=== PATIENT | female | born 1935 | race Caucasian/White ===

== ENCOUNTER 2017-10-13 11:41 | Inpatient (IN) | payer OTHER ==
[2017-10-13 13:21] LABS: BILIRUBIN,URINE NEGATIVE (NEGATIVE); BLOOD/HEMOGLOBIN,URINE NEGATIVE (NEGATIVE); GLUCOSE, URINE NEGATIVE (NEGATIVE); KETONES,URINE NEGATIVE (NEGATIVE); LEUKOCYTE ESTERASE ,URINE NEGATIVE (NEGATIVE); NITRITES,URINE NEGATIVE (NEGATIVE); PROTEIN,URINE NEGATIVE (NEGATIVE); UROBILINOGEN,URINE NORMAL (NORMAL)
[2017-10-13 13:28] LABS: APPEARANCE,URINE CLEAR (CLEAR); BACTERIA,URINE NEGATIVE /HPF (NEGATIVE); COLOR,URINE PALE YELLOW (YELLOW); RBC,URINE 0-1 /HPF (NONE SEEN); SQUAMOUS EPITHELIAL CELL,UR NEGATIVE /HPF (NEGATIVE)
[2017-10-13 13:29] LABS: BASOPHILS # (AUTO) 0.1 X10^3/uL (0.0-0.1); BASOPHILS % (AUTO) 0.5 % (0.2-1.0); EOSINOPHILS % (AUTO) 0.4 % (0.9-2.9); HEMATOCRIT 39.3 % (36.0-47.0); HEMOGLOBIN 13.7 g/dL (12.0-16.0); LYMPHOCYTES % (AUTO) 18.3 % (21.0-51.0); MEAN CORPUSCULAR HEMOGLOBIN 31.8 pg (27.0-34.0); MEAN CORPUSCULAR VOLUME 90.7 fL (80.0-100.0); MEAN PLATELET VOLUME 9.1 fL (7.4-11.0); MONOCYTES # (AUTO) 1.2 x10^3/uL (0.3-0.8); NEUTROPHILS # (AUTO) 7.5 x10^3/uL (2.2-4.8); NEUTROPHILS % (AUTO) 69.8 % (42.0-75.0); PLATELET COUNT 210 X10^3/uL (150.0-450.0); RED BLOOD COUNT 4.33 X10^6/uL (3.5-5.4); WHITE BLOOD COUNT 10.8 X10^3/uL (3.6-10.0)
[2017-10-13] MEDS: NS 1000 ML 1,000 ML IV SCH ×2 (13:42→20:27)
[2017-10-13] MEDS: FORTAZ or TAZICEF INJ 1 GM in NS 100 ML IV + SPIKE MINIBAG* 100 ML IV SCH ×3 (13:42→21:48)
[2017-10-13 14:01] LABS: B-TYPE NATRIURETIC PEPTIDE 375 pg/mL (0-79)
--- NOTE | 2017-10-13 14:12 | RAD ---
History: Shortness of breath Study: Portable AP chest Comparison: September 26, 2016 Findings: There is unchanged mild cardiomegaly status post coronary artery bypass grafting surgery. T he lungs are clear. The lungs are hyperinflated. There is no edema or effusion. Impression: Mild cardiomegaly and hyperinflation suggesting COPD Reported By:
[2017-10-13 14:17] LABS: ALANINE AMINOTRANSFERASE 20 Units/L (12-78); ALBUMIN 3.6 g/dL (3.4-5.0); ALKALINE PHOSPHATASE 86 Units/L (46-116); ASPARTATE AMINO TRANSFERASE 25 Units/L (15-37); BLOOD UREA NITROGEN 12 mg/dL (7-18); CALCIUM 9.6 mg/dL (8.5-10.1); CARBON DIOXIDE 32.9 mmol/L (21-32); CHLORIDE 96 mmol/L (98-107); SODIUM 136 mmol/L (136-145); TOTAL PROTEIN 7.8 g/dL (6.4-8.2); URIC ACID 8.5 mg/dL (2.6-6.0); eGFR BLACK RACES > 60 (>60); eGFR NON BLACK RACES > 60 (>60)
[2017-10-13 14:35] VITALS: BMI 22.0
--- NOTE | 2017-10-13 18:43 | DR.UPDATE ---
H&P Update History and Physical Update: WAS SEEN IN THE OFFICE TODAY. SHE WAS ADMITTED TO THE HOSPITAL FOR LEFT FOOT CELLULITIS/GOUT, CHF, AND HTN. A H&P WAS COMPLETED PRIOR TO ADMISSION. PATIENT HAS BEEN SEEN AND EXAMINED WITH NO CHANGES NOTED TO H&P. Changes noted: NO Yes with the following:
[2017-10-13] MEDS: ZOCOR TAB 20 MG PO SCH (20:24)
[2017-10-13] MEDS: PEPCID TAB 20 MG PO SCH (20:24)
[2017-10-13] MEDS: LOPRESSOR TAB 50 MG PO SCH (20:24)
[2017-10-14] MEDS: TORADOL 15 MG VIAL IVP PRN (01:15)
[2017-10-14] MEDS: FORTAZ or TAZICEF INJ 1 GM in NS 100 ML IV + SPIKE MINIBAG* 100 ML IV SCH ×3 (05:52→21:49)
[2017-10-14] MEDS: NS 1000 ML 1,000 ML IV SCH ×2 (05:55→13:05)
[2017-10-14] MEDS: SYNTHROID 75 mcg TAB PO SCH (06:10)
[2017-10-14 06:21] LABS: BASOPHILS % (AUTO) 0.5 % (0.2-1.0); EOSINOPHILS # (AUTO) 0.1 x10^3/uL (0.0-0.2); EOSINOPHILS % (AUTO) 1.7 % (0.9-2.9); HEMATOCRIT 33.5 % (36.0-47.0); HEMOGLOBIN 11.7 g/dL (12.0-16.0); LYMPHOCYTES # (AUTO) 2.5 X10^3/uL (1.3-2.9); LYMPHOCYTES % (AUTO) 30.8 % (21.0-51.0); MEAN CORPUSCULAR HEMOGLOBIN 31.5 pg (27.0-34.0); MEAN CORPUSCULAR HGB CONC 34.7 g/dL (33.0-35.0); MEAN CORPUSCULAR VOLUME 90.8 fL (80.0-100.0); MEAN PLATELET VOLUME 8.9 fL (7.4-11.0); MONOCYTES # (AUTO) 0.9 x10^3/uL (0.3-0.8); MONOCYTES % (AUTO) 11.2 % (0.0-13.0); NEUTROPHILS # (AUTO) 4.6 x10^3/uL (2.2-4.8); NEUTROPHILS % (AUTO) 55.8 % (42.0-75.0); PLATELET COUNT 177 X10^3/uL (150.0-450.0); RED CELL DISTRIBUTION WIDTH 13.2 % (11.6-16.5); WHITE BLOOD COUNT 8.2 X10^3/uL (3.6-10.0)
[2017-10-14 06:46] LABS: ALANINE AMINOTRANSFERASE 16 Units/L (12-78); ALBUMIN 2.7 g/dL (3.4-5.0); ALKALINE PHOSPHATASE 67 Units/L (46-116); ASPARTATE AMINO TRANSFERASE 21 Units/L (15-37); BLOOD UREA NITROGEN 12 mg/dL (7-18); CALCIUM 8.6 mg/dL (8.5-10.1); CARBON DIOXIDE 31.3 mmol/L (21-32); CHLORIDE 101 mmol/L (98-107); COR CA(FOR HYPOALB) 9.6 mg/dL (8.5-10.1); SODIUM 138 mmol/L (136-145); TOTAL PROTEIN 6.4 g/dL (6.4-8.2); eGFR BLACK RACES > 60 (>60); eGFR NON BLACK RACES > 60 (>60)
[2017-10-14] MEDS: VITAMIN B-12 PO SCH (08:06)
[2017-10-14] MEDS: PEPCID TAB 20 MG PO SCH ×2 (08:07→21:42)
[2017-10-14] MEDS: LOPRESSOR TAB 50 MG PO SCH ×2 (08:07→21:42)
[2017-10-14] MEDS ORDERED: PATIENT'S HOME MEDICATION (Cyanocobalamin (Vitamin B-12) [Vitamin B-12] 1,000 MCG) PO SCH (09:00)
[2017-10-14] MEDS ORDERED: LEVOTHYROXINE SODIUM 75 MCG PO SCH (09:00)
[2017-10-14] MEDS: LASIX IVP SCH ×2 (09:48→21:48)
[2017-10-14] MEDS: COLCRYS TAB 0.6 MG PO SCH ×2 (09:48→21:42)
[2017-10-14] MEDS ORDERED: K-LYTE EFFERVESCENT PO ONE (20:04)
[2017-10-14] MEDS: ZOCOR TAB 20 MG PO SCH (21:42)
[2017-10-15] MEDS: NS 1000 ML 1,000 ML IV SCH ×5 (03:00→23:59)
[2017-10-15 05:28] LABS: BASOPHILS # (AUTO) 0.1 X10^3/uL (0.0-0.1); BASOPHILS % (AUTO) 0.8 % (0.2-1.0); EOSINOPHILS # (AUTO) 0.2 x10^3/uL (0.0-0.2); EOSINOPHILS % (AUTO) 2.2 % (0.9-2.9); HEMATOCRIT 36.8 % (36.0-47.0); HEMOGLOBIN 12.8 g/dL (12.0-16.0); LYMPHOCYTES % (AUTO) 21.4 % (21.0-51.0); MEAN CORPUSCULAR HEMOGLOBIN 31.3 pg (27.0-34.0); MEAN CORPUSCULAR HGB CONC 34.7 g/dL (33.0-35.0); MEAN CORPUSCULAR VOLUME 90.2 fL (80.0-100.0); MEAN PLATELET VOLUME 8.7 fL (7.4-11.0); MONOCYTES # (AUTO) 0.9 x10^3/uL (0.3-0.8); NEUTROPHILS # (AUTO) 6.1 x10^3/uL (2.2-4.8); NEUTROPHILS % (AUTO) 65.6 % (42.0-75.0); PLATELET COUNT 217 X10^3/uL (150.0-450.0); RED BLOOD COUNT 4.08 X10^6/uL (3.5-5.4); RED CELL DISTRIBUTION WIDTH 13.2 % (11.6-16.5); WHITE BLOOD COUNT 9.3 X10^3/uL (3.6-10.0)
[2017-10-15 05:41] LABS: ALANINE AMINOTRANSFERASE 16 Units/L (12-78); ALKALINE PHOSPHATASE 77 Units/L (46-116); ASPARTATE AMINO TRANSFERASE 21 Units/L (15-37); BLOOD UREA NITROGEN 11 mg/dL (7-18); CALCIUM 8.6 mg/dL (8.5-10.1); CARBON DIOXIDE 33.5 mmol/L (21-32); CHLORIDE 101 mmol/L (98-107); COR CA(FOR HYPOALB) 9.4 mg/dL (8.5-10.1); CREATININE 0.77 mg/dL (0.55-1.02); MAGNESIUM 1.8 mg/dL (1.7-2.9); SODIUM 142 mmol/L (136-145); TOTAL PROTEIN 7.2 g/dL (6.4-8.2); eGFR BLACK RACES > 60 (>60); eGFR NON BLACK RACES > 60 (>60)
[2017-10-15] MEDS ORDERED: K-LYTE EFFERVESCENT PO ONE (05:58)
[2017-10-15] MEDS: SYNTHROID 75 mcg TAB PO SCH (06:04)
[2017-10-15] MEDS: FORTAZ or TAZICEF INJ 1 GM in NS 100 ML IV + SPIKE MINIBAG* 100 ML IV SCH ×3 (06:04→21:47)
[2017-10-15 06:08] LABS: ERYTHROCYTE SEDIMENTATION RATE 41 MM/HOUR (0-20)
--- NOTE | 2017-10-15 06:58 | RAD ---
HISTORY: Shortness of breath Study: Chest AP portable Comparison: 10/13/2017 Findings: The patient is status post median sternotomy and CABG. The heart remains enlarged. No congestive hear t failure is noted. The jerilyn are normal. The lungs are hyperinflated consistent with COPD. No acute i nfiltrates or pleural effusions are identified. The bony thorax is unremarkable. IMPRESSION: Cardiomegaly without congestive heart failure 2. Lungs hyperinflated but clear. Consistent with COPD in the appropriate clinical setting Reported By:
[2017-10-15] MEDS: VITAMIN B-12 PO SCH (08:34)
[2017-10-15] MEDS: LOPRESSOR TAB 50 MG PO SCH ×2 (08:34→21:38)
[2017-10-15] MEDS: PEPCID TAB 20 MG PO SCH ×2 (08:34→21:38)
[2017-10-15] MEDS: LASIX IVP SCH ×2 (08:34→21:46)
[2017-10-15] MEDS: COLCRYS TAB 0.6 MG PO SCH ×2 (08:35→21:38)
[2017-10-15] MEDS: ZOCOR TAB 20 MG PO SCH (21:38)
[2017-10-15] MEDS: TORADOL 15 MG VIAL IVP PRN (21:46)
[2017-10-16] MEDS: NS 1000 ML 1,000 ML IV SCH ×4 (02:56→20:50)
[2017-10-16 05:54] LABS: ALANINE AMINOTRANSFERASE 17 Units/L (12-78); ALBUMIN 2.8 g/dL (3.4-5.0); ALKALINE PHOSPHATASE 82 Units/L (46-116); ASPARTATE AMINO TRANSFERASE 24 Units/L (15-37); BLOOD UREA NITROGEN 10 mg/dL (7-18); CALCIUM 8.5 mg/dL (8.5-10.1); CARBON DIOXIDE 34.4 mmol/L (21-32); CHLORIDE 99 mmol/L (98-107); COR CA(FOR HYPOALB) 9.5 mg/dL (8.5-10.1); CREATININE 0.77 mg/dL (0.55-1.02); SODIUM 140 mmol/L (136-145); TOTAL PROTEIN 6.8 g/dL (6.4-8.2); eGFR BLACK RACES > 60 (>60); eGFR NON BLACK RACES > 60 (>60)
[2017-10-16] MEDS: FORTAZ or TAZICEF INJ 1 GM in NS 100 ML IV + SPIKE MINIBAG* 100 ML IV SCH ×3 (06:01→21:02)
[2017-10-16] MEDS: SYNTHROID 75 mcg TAB PO SCH (06:04)
[2017-10-16 06:05] LABS: BASOPHILS % (AUTO) 0.4 % (0.2-1.0); EOSINOPHILS # (AUTO) 0.4 x10^3/uL (0.0-0.2); EOSINOPHILS % (AUTO) 4.7 % (0.9-2.9); HEMATOCRIT 37.1 % (36.0-47.0); HEMOGLOBIN 12.7 g/dL (12.0-16.0); LYMPHOCYTES # (AUTO) 2.4 X10^3/uL (1.3-2.9); LYMPHOCYTES % (AUTO) 30.8 % (21.0-51.0); MEAN CORPUSCULAR HEMOGLOBIN 31.1 pg (27.0-34.0); MEAN CORPUSCULAR HGB CONC 34.3 g/dL (33.0-35.0); MEAN CORPUSCULAR VOLUME 90.8 fL (80.0-100.0); MEAN PLATELET VOLUME 8.7 fL (7.4-11.0); MONOCYTES # (AUTO) 0.7 x10^3/uL (0.3-0.8); MONOCYTES % (AUTO) 9.4 % (0.0-13.0); NEUTROPHILS # (AUTO) 4.3 x10^3/uL (2.2-4.8); NEUTROPHILS % (AUTO) 54.7 % (42.0-75.0); PLATELET COUNT 212 X10^3/uL (150.0-450.0); RED BLOOD COUNT 4.09 X10^6/uL (3.5-5.4); WHITE BLOOD COUNT 7.8 X10^3/uL (3.6-10.0)
--- NOTE | 2017-10-16 07:08 | RAD ---
HISTORY: Shortness of breath Study: Chest AP portable Comparison: 10/15/2017 Findings: The patient is status post median sternotomy and CABG. The heart remains enlarged. No congestive hear t failure is noted. The lungs remain hyperinflated but clear. No pleural effusions are identified. Th e bony thorax is unremarkable. IMPRESSION: Stable cardiomegaly without congestive heart failure Lungs hyperinflated but clear Reported By:
[2017-10-16] MEDS: COLCRYS TAB 0.6 MG PO SCH ×2 (09:05→20:42)
[2017-10-16] MEDS: PEPCID TAB 20 MG PO SCH ×2 (09:05→20:42)
[2017-10-16] MEDS: LOPRESSOR TAB 50 MG PO SCH ×2 (09:05→20:42)
[2017-10-16] MEDS: VITAMIN B-12 PO SCH (09:05)
[2017-10-16] MEDS: LASIX IVP SCH ×2 (09:05→20:42)
--- NOTE | 2017-10-16 10:54 | PCM.PROG ---
Progress Note - Progress Note for Day of Date: 10/14/17 - Subjective Subjective: IS BEING TREATED FOR CELLULITIS/GOUT TO THE LEFT FOOT, HYPERTENSION, AND CONGESTIVE HEART FAILURE. TODAY, SHE IS ALERT AND ORIENTED, LYING IN BED ON MORNING ROUNDS. SHE IS NOTED WITH COMPLAINTS OF PAIN AND EDEMA TO THE LEFT FOOT. ON EXAMINATION, HEART IS NORMAL IN RATE AND RHYTHM. BILATERAL LUNGS ARE NOTED WITH DIMINISHED LUNG SOUNDS THROGHOUT. ABDOMEN IS ROUND, SOFT, AND NON-TENDER WITH NORMAL BOWEL SOUNDS NOTED IN ALL QUADRANTS. LEFT FOOT IS NOTED WITH ERYTHEMA AND EDEMA. 1+ PITTING EDEMA NOTED TO BILATERAL LOWER EXTREMITIES. HER VITALS THIS MORNING ARE 98.5-73-16-99%-186/78. LABS WERE OBTAINED. ABNORMAL LAB VALUES INCLUDE THE FOLLOWING: HGB 11.7, HCT 33.5, POTASSIUM 3.1, ALBUMIN 2.7. CARDIAC ENZYMES AND EKGS HAVE BEEN WITHIN NORMAL LIMITS. TODAY, WE WILL START COLCRYS 0.6MG PO BID AND LASIX 40MG IV BID. OTHERWISE, WE WILL CONTINUE FORTAZ AND CURRENT PLAN OF CARE. WE WILL OBTAIN AN ECHOCARDIOGRAM. WE PLAN TO FOLLOW UP WITH AM LABS AND A CHEST XRAY AND CONTINUE TO MONITOR PATIENT. - Past Medical Family Social History Past Med/Fam/Surg Hx: No changes since H&P Allergies: Allergies Penicillins Allergy (Verified 10/13/17 13:10) Sulfa (Sulfonamide Antibiotics) [SULFA] Allergy (Verified 10/13/17 13:10) - Review of Systems ROS: No change since H&P - Vital Signs and I&O's Vital Signs: Temperature 97.5 F Pulse Rate [Left Brachial] 61 Respiratory Rate 18 Blood Pressure [Right Arm] 137/59 Blood Pressure [Left Arm] 157/67 Blood Pressure 179/85 O2 Sat by Pulse Oximetry 98 Intake and Output: Intake & Output 10/13/17 10/14/17 10/15/17 10/16/17 11:59 11:59 11:59 11:59 Intake Total 1781 3694 2780 Output Total 800 1300 3300 Balance 981 1814 -520 - Physical Exam Oriented: Normal Eyes: Normal Ear: Normal Nose: Normal Throat: Normal Respiratory: Generalized, Diminished Cardiovascular: Edema (BILATERAL LOWER EXTREMITY 1+ PITTING EDEMA ) : Normal Auscultation: Bowel Sounds: Normal Palpation: Normal Tenderness: Normal Skin: Red (LEFT FOOT EDEMA, ERYTHEMA ), Tender, Hot Musculoskeletal: Left, Ankle, Foot, Swelling, Tender Psychiatric: Normal Mood Description: Calm Affect: Normal Speech Pattern: Clear, Appropriate - Laboratory and Diagnostics Result Diagrams: 10/16/17 04:45 10/16/17 04:45 Labs: Laboratory WBC 7.8 X10^3/uL (3.6-10.0) 10/16/17 04:45 RBC 4.09 X10^6/uL (3.5-5.4) 10/16/17 04:45 Hgb 12.7 g/dL (12.0-16.0) 10/16/17 04:45 Hct 37.1 % (36.0-47.0) 10/16/17 04:45 MCV 90.8 fL (80.0-100.0) 10/16/17 04:45 MCH 31.1 pg (27.0-34.0) 10/16/17 04:45 MCHC 34.3 g/dL (33.0-35.0) 10/16/17 04:45 RDW 13.0 % (11.6-16.5) 10/16/17 04:45 Plt Count 212 X10^3/uL (150.0-450.0) 10/16/17 04:45 MPV 8.7 fL (7.4-11.0) 10/16/17 04:45 Neut % (Auto) 54.7 % (42.0-75.0) 10/16/17 04:45 Lymph % (Auto) 30.8 % (21.0-51.0) 10/16/17 04:45 [place] % (Auto) 9.4 % (0.0-13.0) 10/16/17 04:45 Eos % (Auto) 4.7 % (0.9-2.9) H 10/16/17 04:45 Baso % (Auto) 0.4 % (0.2-1.0) 10/16/17 04:45 Neut # (Auto) 4.3 x10^3/uL (2.2-4.8) 10/16/17 04:45 Lymph # (Auto) 2.4 X10^3/uL (1.3-2.9) 10/16/17 04:45 [place] # (Auto) 0.7 x10^3/uL (0.3-0.8) 10/16/17 04:45 Eos # (Auto) 0.4 x10^3/uL (0.0-0.2) H 10/16/17 04:45 Baso # (Auto) 0.0 X10^3/uL (0.0-0.1) 10/16/17 04:45 Absolute Nucleated RBC 0.0 /100WBC 10/16/17 04:45 ESR 41 MM/HOUR (0-20) H 10/15/17 05:09 Sodium 140 mmol/L (136-145) 10/16/17 04:45 Corrected Sodium TNP 10/16/17 04:45 Potassium 3.1 mmol/L (3.5-5.1) L 10/16/17 04:45 Chloride 99 mmol/L (98-107) 10/16/17 04:45 Carbon Dioxide 34.4 mmol/L (21-32) H 10/16/17 04:45 BUN 10 mg/dL (7-18) 10/16/17 04:45 Creatinine 0.77 mg/dL (0.55-1.02) 10/16/17 04:45 Est GFR (MDRD) Af Amer > 60 (>60) 10/16/17 04:45 Est GFR (MDRD) Non-Af > 60 (>60) 10/16/17 04:45 Glucose 90 mg/dL (65-99) 10/16/17 04:45 Uric Acid 8.5 mg/dL (2.6-6.0) H 10/13/17 13:57 Calcium 8.5 mg/dL (8.5-10.1) 10/16/17 04:45 Corrected Calcium 9.5 mg/dL (8.5-10.1) 10/16/17 04:45 Magnesium 1.8 mg/dL (1.7-2.9) 10/15/17 05:09 Total Bilirubin 0.60 mg/dL (0.2-1.0) 10/16/17 04:45 AST 24 Units/L (15-37) 10/16/17 04:45 ALT 17 Units/L (12-78) 10/16/17 04:45 Alkaline Phosphatase 82 Units/L (46-116) 10/16/17 04:45 C-Reactive Protein 31.70 mg/L (0-3.0) H 10/15/17 05:09 B-Natriuretic Peptide 375 pg/mL (0-79) H 10/13/17 13:57 Total Protein 6.8 g/dL (6.4-8.2) 10/16/17 04:45 Albumin 2.8 g/dL (3.4-5.0) L 10/16/17 04:45 Globulin 4.0 g/dL (2.5-4.5) 10/16/17 04:45 Albumin/Globulin Ratio 0.7 Ratio (1.1-2.1) L 10/16/17 04:45 Specimen Type Random urine 10/13/17 13:10 Urine Color Pale yellow (YELLOW) 10/13/17 13:10 Urine Appearance Clear (CLEAR) 10/13/17 13:10 Urine pH 7.0 (5.0 - 8.0) 10/13/17 13:10 Ur Specific [place] 1.010 (1.000-1.030) 10/13/17 13:10 Urine Protein Negative (NEGATIVE) 10/13/17 13:10 Urine Glucose (UA) Negative (NEGATIVE) 10/13/17 13:10 Urine Ketones Negative (NEGATIVE) 10/13/17 13:10 Urine Occult Blood Negative (NEGATIVE) 10/13/17 13:10 Urine Nitrite Negative (NEGATIVE) 10/13/17 13:10 Urine Bilirubin Negative (NEGATIVE) 10/13/17 13:10 Urine Urobilinogen Normal (NORMAL) 10/13/17 13:10 Ur Leukocyte Esterase Negative (NEGATIVE) 10/13/17 13:10 Urine RBC 0-1 /HPF (NONE SEEN) 10/13/17 13:10 Urine WBC 0-1 /HPF (NONE SEEN) 10/13/17 13:10 Ur Squamous Epith Cells Negative /HPF (NEGATIVE) 10/13/17 13:10 Urine Bacteria Negative /HPF (NEGATIVE) 10/13/17 13:10 Ur Culture Indicated? 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, left ankle and foot Plan: COLCRYS 0.6MG PO BID, TORADOL 15MG IVP Q6H PRN, CONTINUE TO MONITOR (3) Hypertension Status: Acute Qualifiers: Hypertension type: essential hypertension Qualified Code(s): I10 - Essential (primary) hypertension Plan: CONTINUE LOPRESSOR, CONTINUE TO MONITOR (4) CHF (congestive heart failure) Status: Chronic Qualifiers: Heart failure type: unspecified Heart failure chronicity: acute on chronic Qualified Code(s): I50.9 - Heart failure, unspecified Plan: LASIX 40MG IV BID, CONITNUE LOPRESSOR, CONTINUE TO MONITOR (5) Hypothyroidism Status: Chronic Qualifiers: Hypothyroidism type: acquired Qualified Code(s): E03.9 - Hypothyroidism, unspecified Plan: CONTINUE SYNTHROID (6) Hyperlipidemia Status: Chronic Plan: CONTINUE ZOCOR
--- NOTE | 2017-10-16 11:36 | PCM.PROG ---
Progress Note - Progress Note for Day of Date: 10/15/17 - Subjective Subjective: IS BEING TREATED FOR CELLULITIS/GOUT TO THE LEFT FOOT, HYPERTENSION, AND CONGESTIVE HEART FAILURE. TODAY, SHE IS ALERT AND ORIENTED, LYING IN BED ON MORNING ROUNDS. SHE CONTINUES WITH COMPLAINTS OF PAIN AND EDEMA TO THE LEFT FOOT. ON EXAMINATION, HEART IS NORMAL IN RATE AND RHYTHM. BILATERAL LUNGS ARE NOTED WITH DIMINISHED LUNG SOUNDS THROGHOUT. ABDOMEN IS ROUND, SOFT, AND NON-TENDER WITH NORMAL BOWEL SOUNDS NOTED IN ALL QUADRANTS. LEFT FOOT IS NOTED WITH ERYTHEMA AND EDEMA. SWELLING HAS DECREASED SINCE YESTERDAY. HER VITALS THIS MORNING ARE 98.2-67-18-98%-140/64. LABS WERE OBTAINED. ABNORMAL LAB VALUES INCLUDE THE FOLLOWING: POTASSIUM 3.1, CARBON DIOXIDE 33.5, GLUCOSE 101, CRP 31.70, ALBUMIN 3.0. WE OBTAINED A CHEST XRAY THIS MORNING. IT REVEALED CARDIOMEGALY WITHOUT CONGESTIVE HEART FAILURE. LUNGS HYPERINFLATED BUT CLEAR. CONSISTENT WITH COPD. AN ECHOCARDIOGRAM IS TO BE OBTAINED THIS AFTERNOON. TODAY , WE WILL CONTINUE IV ANTIBIOTICS AND CURRENT PLAN OF CARE FOR CELLULITIS/GOUT. WE PLAN TO FOLLOW UP WITH AM LABS AND A CHEST XRAY AND CONTINUE TO MONITOR PATIENT. - Past Medical Family Social History Past Med/Fam/Surg Hx: No changes since H&P Allergies: Allergies Penicillins Allergy (Verified 10/13/17 13:10) Sulfa (Sulfonamide Antibiotics) [SULFA] Allergy (Verified 10/13/17 13:10) - Review of Systems ROS: No change since H&P - Vital Signs and I&O's Vital Signs: Temperature 97.5 F Pulse Rate [Left Brachial] 61 Respiratory Rate 18 Blood Pressure [Right Arm] 137/59 Blood Pressure [Left Arm] 157/67 Blood Pressure 179/85 O2 Sat by Pulse Oximetry 98 Intake and Output: Intake & Output 10/13/17 10/14/17 10/15/17 10/16/17 11:59 11:59 11:59 11:59 Intake Total 1781 3694 2780 Output Total 800 1300 3300 Balance 981 4804 -520 - Physical Exam Oriented: Normal Eyes: Normal Ear: Normal Nose: Normal Throat: Normal Respiratory: Generalized, Diminished Cardiovascular: Edema (BILATERAL LOWER EXTREMITY 1+ PITTING EDEMA ) : Normal Auscultation: Bowel Sounds: Normal Palpation: Normal Tenderness: Normal Skin: Red (LEFT FOOT EDEMA, ERYTHEMA ), Tender, Hot Musculoskeletal: Left, Ankle, Foot, Swelling, Tender Psychiatric: Normal Mood Description: Calm Affect: Normal Speech Pattern: Clear, Appropriate - Laboratory and Diagnostics Result Diagrams: 10/16/17 04:45 10/16/17 04:45 Labs: Laboratory WBC 7.8 X10^3/uL (3.6-10.0) 10/16/17 04:45 RBC 4.09 X10^6/uL (3.5-5.4) 10/16/17 04:45 Hgb 12.7 g/dL (12.0-16.0) 10/16/17 04:45 Hct 37.1 % (36.0-47.0) 10/16/17 04:45 MCV 90.8 fL (80.0-100.0) 10/16/17 04:45 MCH 31.1 pg (27.0-34.0) 10/16/17 04:45 MCHC 34.3 g/dL (33.0-35.0) 10/16/17 04:45 RDW 13.0 % (11.6-16.5) 10/16/17 04:45 Plt Count 212 X10^3/uL (150.0-450.0) 10/16/17 04:45 MPV 8.7 fL (7.4-11.0) 10/16/17 04:45 Neut % (Auto) 54.7 % (42.0-75.0) 10/16/17 04:45 Lymph % (Auto) 30.8 % (21.0-51.0) 10/16/17 04:45 [place] % (Auto) 9.4 % (0.0-13.0) 10/16/17 04:45 Eos % (Auto) 4.7 % (0.9-2.9) H 10/16/17 04:45 Baso % (Auto) 0.4 % (0.2-1.0) 10/16/17 04:45 Neut # (Auto) 4.3 x10^3/uL (2.2-4.8) 10/16/17 04:45 Lymph # (Auto) 2.4 X10^3/uL (1.3-2.9) 10/16/17 04:45 [place] # (Auto) 0.7 x10^3/uL (0.3-0.8) 10/16/17 04:45 Eos # (Auto) 0.4 x10^3/uL (0.0-0.2) H 10/16/17 04:45 Baso # (Auto) 0.0 X10^3/uL (0.0-0.1) 10/16/17 04:45 Absolute Nucleated RBC 0.0 /100WBC 10/16/17 04:45 ESR 41 MM/HOUR (0-20) H 10/15/17 05:09 Sodium 140 mmol/L (136-145) 10/16/17 04:45 Corrected Sodium TNP 10/16/17 04:45 Potassium 3.1 mmol/L (3.5-5.1) L 10/16/17 04:45 Chloride 99 mmol/L (98-107) 10/16/17 04:45 Carbon Dioxide 34.4 mmol/L (21-32) H 10/16/17 04:45 BUN 10 mg/dL (7-18) 10/16/17 04:45 Creatinine 0.77 mg/dL (0.55-1.02) 10/16/17 04:45 Est GFR (MDRD) Af Amer > 60 (>60) 10/16/17 04:45 Est GFR (MDRD) Non-Af > 60 (>60) 10/16/17 04:45 Glucose 90 mg/dL (65-99) 10/16/17 04:45 Uric Acid 8.5 mg/dL (2.6-6.0) H 10/13/17 13:57 Calcium 8.5 mg/dL (8.5-10.1) 10/16/17 04:45 Corrected Calcium 9.5 mg/dL (8.5-10.1) 10/16/17 04:45 Magnesium 1.8 mg/dL (1.7-2.9) 10/15/17 05:09 Total Bilirubin 0.60 mg/dL (0.2-1.0) 10/16/17 04:45 AST 24 Units/L (15-37) 10/16/17 04:45 ALT 17 Units/L (12-78) 10/16/17 04:45 Alkaline Phosphatase 82 Units/L (46-116) 10/16/17 04:45 C-Reactive Protein 31.70 mg/L (0-3.0) H 10/15/17 05:09 B-Natriuretic Peptide 375 pg/mL (0-79) H 10/13/17 13:57 Total Protein 6.8 g/dL (6.4-8.2) 10/16/17 04:45 Albumin 2.8 g/dL (3.4-5.0) L 10/16/17 04:45 Globulin 4.0 g/dL (2.5-4.5) 10/16/17 04:45 Albumin/Globulin Ratio 0.7 Ratio (1.1-2.1) L 10/16/17 04:45 Specimen Type Random urine 10/13/17 13:10 Urine Color Pale yellow (YELLOW) 10/13/17 13:10 Urine Appearance Clear (CLEAR) 10/13/17 13:10 Urine pH 7.0 (5.0 - 8.0) 10/13/17 13:10 Ur Specific [place] 1.010 (1.000-1.030) 10/13/17 13:10 Urine Protein Negative (NEGATIVE) 10/13/17 13:10 Urine Glucose (UA) Negative (NEGATIVE) 10/13/17 13:10 Urine Ketones Negative (NEGATIVE) 10/13/17 13:10 Urine Occult Blood Negative (NEGATIVE) 10/13/17 13:10 Urine Nitrite Negative (NEGATIVE) 10/13/17 13:10 Urine Bilirubin Negative (NEGATIVE) 10/13/17 13:10 Urine Urobilinogen Normal (NORMAL) 10/13/17 13:10 Ur Leukocyte Esterase Negative (NEGATIVE) 10/13/17 13:10 Urine RBC 0-1 /HPF (NONE SEEN) 10/13/17 13:10 Urine WBC 0-1 /HPF (NONE SEEN) 10/13/17 13:10 Ur Squamous Epith Cells Negative /HPF (NEGATIVE) 10/13/17 13:10 Urine Bacteria Negative /HPF (NEGATIVE) 10/13/17 13:10 Ur Culture Indicated? 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, left ankle and foot Plan: COLCRYS 0.6MG PO BID, TORADOL 15MG IVP Q6H PRN, CONTINUE TO MONITOR (3) Hypertension Status: Acute Qualifiers: Hypertension type: essential hypertension Qualified Code(s): I10 - Essential (primary) hypertension Plan: CONTINUE LOPRESSOR, CONTINUE TO MONITOR (4) CHF (congestive heart failure) Status: Chronic Qualifiers: Heart failure type: unspecified Heart failure chronicity: acute on chronic Qualified Code(s): I50.9 - Heart failure, unspecified Plan: LASIX 40MG IV BID, CONITNUE LOPRESSOR, CONTINUE TO MONITOR (5) Hypothyroidism Status: Chronic Qualifiers: Hypothyroidism type: acquired Qualified Code(s): E03.9 - Hypothyroidism, unspecified Plan: CONTINUE SYNTHROID (6) Hyperlipidemia Status: Chronic Plan: CONTINUE ZOCOR
[2017-10-16] MEDS: MICRO K EXTEN CAP 10 MEQ PO SCH ×2 (13:47→20:42)
[2017-10-16] MEDS: ZOCOR TAB 20 MG PO SCH (20:42)
[2017-10-17] MEDS: NS 1000 ML 1,000 ML IV SCH ×2 (05:54→20:58)
[2017-10-17] MEDS: FORTAZ or TAZICEF INJ 1 GM in NS 100 ML IV + SPIKE MINIBAG* 100 ML IV SCH ×3 (05:54→22:27)
[2017-10-17 06:14] LABS: BASOPHILS % (AUTO) 0.4 % (0.2-1.0); EOSINOPHILS # (AUTO) 0.4 x10^3/uL (0.0-0.2); EOSINOPHILS % (AUTO) 5.5 % (0.9-2.9); HEMATOCRIT 36.4 % (36.0-47.0); HEMOGLOBIN 12.4 g/dL (12.0-16.0); LYMPHOCYTES # (AUTO) 2.2 X10^3/uL (1.3-2.9); LYMPHOCYTES % (AUTO) 28.7 % (21.0-51.0); MEAN CORPUSCULAR HEMOGLOBIN 31.2 pg (27.0-34.0); MEAN CORPUSCULAR HGB CONC 34.2 g/dL (33.0-35.0); MEAN CORPUSCULAR VOLUME 91.3 fL (80.0-100.0); MEAN PLATELET VOLUME 8.5 fL (7.4-11.0); MONOCYTES # (AUTO) 0.6 x10^3/uL (0.3-0.8); MONOCYTES % (AUTO) 8.2 % (0.0-13.0); NEUTROPHILS # (AUTO) 4.4 x10^3/uL (2.2-4.8); NEUTROPHILS % (AUTO) 57.2 % (42.0-75.0); PLATELET COUNT 226 X10^3/uL (150.0-450.0); RED BLOOD COUNT 3.98 X10^6/uL (3.5-5.4); WHITE BLOOD COUNT 7.7 X10^3/uL (3.6-10.0)
[2017-10-17] MEDS: SYNTHROID 75 mcg TAB PO SCH (06:17)
[2017-10-17 06:25] LABS: ALANINE AMINOTRANSFERASE 18 Units/L (12-78); ALBUMIN 2.7 g/dL (3.4-5.0); ALKALINE PHOSPHATASE 75 Units/L (46-116); ASPARTATE AMINO TRANSFERASE 22 Units/L (15-37); BLOOD UREA NITROGEN 15 mg/dL (7-18); CALCIUM 8.4 mg/dL (8.5-10.1); CHLORIDE 100 mmol/L (98-107); COR CA(FOR HYPOALB) 9.4 mg/dL (8.5-10.1); CREATININE 0.81 mg/dL (0.55-1.02); SODIUM 141 mmol/L (136-145); TOTAL PROTEIN 6.4 g/dL (6.4-8.2); eGFR BLACK RACES > 60 (>60); eGFR NON BLACK RACES > 60 (>60)
[2017-10-17] MEDS: LASIX IVP SCH ×2 (09:00→20:59)
[2017-10-17] MEDS: COLCRYS TAB 0.6 MG PO SCH ×2 (09:00→20:59)
[2017-10-17] MEDS: PEPCID TAB 20 MG PO SCH ×2 (09:01→20:59)
[2017-10-17] MEDS: MICRO K EXTEN CAP 10 MEQ PO SCH ×2 (09:01→20:59)
[2017-10-17] MEDS: VITAMIN B-12 PO SCH (09:01)
[2017-10-17] MEDS: LOPRESSOR TAB 50 MG PO SCH ×2 (09:01→20:59)
--- NOTE | 2017-10-17 11:22 | PCM.PROG ---
Progress Note - Progress Note for Day of Date: 10/16/17 - Subjective Subjective: IS BEING TREATED FOR CELLULITIS/GOUT TO THE LEFT FOOT, HYPERTENSION, AND CONGESTIVE HEART FAILURE. TODAY, SHE IS ALERT AND ORIENTED, LYING IN BED ON MORNING ROUNDS. SHE CONTINUES WITH COMPLAINTS OF PAIN,REDNESS, AND EDEMA TO THE LEFT FOOT. ON EXAMINATION, HEART IS NORMAL IN RATE AND RHYTHM. BILATERAL LUNGS ARE NOTED WITH DIMINISHED LUNG SOUNDS THROGHOUT. ABDOMEN IS ROUND, SOFT, AND NON-TENDER WITH NORMAL BOWEL SOUNDS NOTED IN ALL QUADRANTS. LEFT FOOT IS NOTED WITH ERYTHEMA AND EDEMA, SLIGHTLY IMPROVED SINCE YESTERDAY. HER VITALS THIS MORNING ARE 97.5-61-18-98%-157/67. LABS WERE OBTAINED. SHE REMAINS HEMODYNAMICALLY STABLE TODAY. POTASSIUM IS LOW AT 3.1. WE WILL START [place] 20MEQ PO BID. WE OBTAINED A CHEST XRAY THIS MORNING. IT REVEALED CARDIOMEGALY WITHOUT CONGESTIVE HEART FAILURE. LUNGS HYPERINFLATED BUT CLEAR. TODAY, WE WILL CONTINUE IV ANTIBIOTICS AND CURRENT PLAN OF CARE FOR CELLULITIS/ GOUT. WE PLAN TO FOLLOW UP WITH AM LABS AND A CHEST XRAY AND CONTINUE TO MONITOR PATIENT. - Past Medical Family Social History Past Med/Fam/Surg Hx: No changes since H&P Allergies: Allergies Penicillins Allergy (Verified 10/13/17 13:10) Sulfa (Sulfonamide Antibiotics) [SULFA] Allergy (Verified 10/13/17 13:10) - Review of Systems ROS: No change since H&P - Vital Signs and I&O's Vital Signs: Temperature 97.1 F Pulse Rate [Left Brachial] 68 Respiratory Rate 18 Blood Pressure [Right Arm] 159/69 Blood Pressure [Left Arm] 144/75 Blood Pressure 179/85 O2 Sat by Pulse Oximetry 98 Intake and Output: Intake & Output 10/14/17 10/15/17 10/16/17 10/17/17 11:59 11:59 11:59 11:59 Intake Total 1781 3694 2780 1850 Output Total 800 9993 3300 4425 Balance 981 1454 -077 -1670 - Physical Exam Oriented: Normal Eyes: Normal Ear: Normal Nose: Normal Throat: Normal Respiratory: Generalized, Diminished Cardiovascular: Edema (BILATERAL LOWER EXTREMITY 1+ PITTING EDEMA ) : Normal Auscultation: Bowel Sounds: Normal Palpation: Normal Tenderness: Normal Skin: Red (LEFT FOOT EDEMA, ERYTHEMA ), Tender, Hot Musculoskeletal: Left, Ankle, Foot, Swelling, Tender Psychiatric: Normal Mood Description: Calm Affect: Normal Speech Pattern: Clear, Appropriate - Laboratory and Diagnostics Result Diagrams: 10/17/17 05:09 10/17/17 05:09 Labs: Laboratory WBC 7.7 X10^3/uL (3.6-10.0) 10/17/17 05:09 RBC 3.98 X10^6/uL (3.5-5.4) 10/17/17 05:09 Hgb 12.4 g/dL (12.0-16.0) 10/17/17 05:09 Hct 36.4 % (36.0-47.0) 10/17/17 05:09 MCV 91.3 fL (80.0-100.0) 10/17/17 05:09 MCH 31.2 pg (27.0-34.0) 10/17/17 05:09 MCHC 34.2 g/dL (33.0-35.0) 10/17/17 05:09 RDW 13.0 % (11.6-16.5) 10/17/17 05:09 Plt Count 226 X10^3/uL (150.0-450.0) 10/17/17 05:09 MPV 8.5 fL (7.4-11.0) 10/17/17 05:09 Neut % (Auto) 57.2 % (42.0-75.0) 10/17/17 05:09 Lymph % (Auto) 28.7 % (21.0-51.0) 10/17/17 05:09 [place] % (Auto) 8.2 % (0.0-13.0) 10/17/17 05:09 Eos % (Auto) 5.5 % (0.9-2.9) H 10/17/17 05:09 Baso % (Auto) 0.4 % (0.2-1.0) 10/17/17 05:09 Neut # (Auto) 4.4 x10^3/uL (2.2-4.8) 10/17/17 05:09 Lymph # (Auto) 2.2 X10^3/uL (1.3-2.9) 10/17/17 05:09 [place] # (Auto) 0.6 x10^3/uL (0.3-0.8) 10/17/17 05:09 Eos # (Auto) 0.4 x10^3/uL (0.0-0.2) H 10/17/17 05:09 Baso # (Auto) 0.0 X10^3/uL (0.0-0.1) 10/17/17 05:09 Absolute Nucleated RBC 0.1 /100WBC 10/17/17 05:09 ESR 41 MM/HOUR (0-20) H 10/15/17 05:09 Sodium 141 mmol/L (136-145) 10/17/17 05:09 Corrected Sodium TNP 10/17/17 05:09 Potassium 3.5 mmol/L (3.5-5.1) 10/17/17 05:09 Chloride 100 mmol/L (98-107) 10/17/17 05:09 Carbon Dioxide 35.0 mmol/L (21-32) H 10/17/17 05:09 BUN 15 mg/dL (7-18) 10/17/17 05:09 Creatinine 0.81 mg/dL (0.55-1.02) 10/17/17 05:09 Est GFR (MDRD) Af Amer > 60 (>60) 10/17/17 05:09 Est GFR (MDRD) Non-Af > 60 (>60) 10/17/17 05:09 Glucose 89 mg/dL (65-99) 10/17/17 05:09 Uric Acid 8.5 mg/dL (2.6-6.0) H 10/13/17 13:57 Calcium 8.4 mg/dL (8.5-10.1) L 10/17/17 05:09 Corrected Calcium 9.4 mg/dL (8.5-10.1) 10/17/17 05:09 Magnesium 1.8 mg/dL (1.7-2.9) 10/15/17 05:09 Total Bilirubin 0.50 mg/dL (0.2-1.0) 10/17/17 05:09 AST 22 Units/L (15-37) 10/17/17 05:09 ALT 18 Units/L (12-78) 10/17/17 05:09 Alkaline Phosphatase 75 Units/L (46-116) 10/17/17 05:09 C-Reactive Protein 31.70 mg/L (0-3.0) H 10/15/17 05:09 B-Natriuretic Peptide 375 pg/mL (0-79) H 10/13/17 13:57 Total Protein 6.4 g/dL (6.4-8.2) 10/17/17 05:09 Albumin 2.7 g/dL (3.4-5.0) L 10/17/17 05:09 Globulin 3.7 g/dL (2.5-4.5) 10/17/17 05:09 Albumin/Globulin Ratio 0.7 Ratio (1.1-2.1) L 10/17/17 05:09 Specimen Type Random urine 10/13/17 13:10 Urine Color Pale yellow (YELLOW) 10/13/17 13:10 Urine Appearance Clear (CLEAR) 10/13/17 13:10 Urine pH 7.0 (5.0 - 8.0) 10/13/17 13:10 Ur Specific [place] 1.010 (1.000-1.030) 10/13/17 13:10 Urine Protein Negative (NEGATIVE) 10/13/17 13:10 Urine Glucose (UA) Negative (NEGATIVE) 10/13/17 13:10 Urine Ketones Negative (NEGATIVE) 10/13/17 13:10 Urine Occult Blood Negative (NEGATIVE) 10/13/17 13:10 Urine Nitrite Negative (NEGATIVE) 10/13/17 13:10 Urine Bilirubin Negative (NEGATIVE) 10/13/17 13:10 Urine Urobilinogen Normal (NORMAL) 10/13/17 13:10 Ur Leukocyte Esterase Negative (NEGATIVE) 10/13/17 13:10 Urine RBC 0-1 /HPF (NONE SEEN) 10/13/17 13:10 Urine WBC 0-1 /HPF (NONE SEEN) 10/13/17 13:10 Ur Squamous Epith Cells Negative /HPF (NEGATIVE) 10/13/17 13:10 Urine Bacteria Negative /HPF (NEGATIVE) 10/13/17 13:10 Ur Culture Indicated? 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, left ankle and foot Plan: COLCRYS 0.6MG PO BID, TORADOL 15MG IVP Q6H PRN, CONTINUE TO MONITOR (3) Hypertension Status: Acute Qualifiers: Hypertension type: essential hypertension Qualified Code(s): I10 - Essential (primary) hypertension Plan: CONTINUE LOPRESSOR, CONTINUE TO MONITOR (4) CHF (congestive heart failure) Status: Chronic Qualifiers: Heart failure type: unspecified Heart failure chronicity: acute on chronic Qualified Code(s): I50.9 - Heart failure, unspecified Plan: LASIX 40MG IV BID, CONITNUE LOPRESSOR, CONTINUE TO MONITOR (5) Hypothyroidism Status: Chronic Qualifiers: Hypothyroidism type: acquired Qualified Code(s): E03.9 - Hypothyroidism, unspecified Plan: CONTINUE SYNTHROID (6) Hyperlipidemia Status: Chronic Plan: CONTINUE ZOCOR (7) Hypokalemia Status: Acute Plan: MICRO-K 20MEQ PO BID, CONTINUE TO MONITOR
[2017-10-17] MEDS: ZOCOR TAB 20 MG PO SCH (20:59)
[2017-10-18] MEDS: NS 1000 ML 1,000 ML IV SCH (04:10)
[2017-10-18] MEDS: FORTAZ or TAZICEF INJ 1 GM in NS 100 ML IV + SPIKE MINIBAG* 100 ML IV SCH (05:34)
[2017-10-18 05:52] LABS: BASOPHILS % (AUTO) 0.6 % (0.2-1.0); EOSINOPHILS # (AUTO) 0.4 x10^3/uL (0.0-0.2); EOSINOPHILS % (AUTO) 5.8 % (0.9-2.9); HEMATOCRIT 35.1 % (36.0-47.0); HEMOGLOBIN 12.1 g/dL (12.0-16.0); LYMPHOCYTES # (AUTO) 2.1 X10^3/uL (1.3-2.9); LYMPHOCYTES % (AUTO) 28.6 % (21.0-51.0); MEAN CORPUSCULAR HEMOGLOBIN 31.1 pg (27.0-34.0); MEAN CORPUSCULAR HGB CONC 34.3 g/dL (33.0-35.0); MEAN CORPUSCULAR VOLUME 90.6 fL (80.0-100.0); MEAN PLATELET VOLUME 8.5 fL (7.4-11.0); MONOCYTES # (AUTO) 0.6 x10^3/uL (0.3-0.8); MONOCYTES % (AUTO) 8.7 % (0.0-13.0); NEUTROPHILS # (AUTO) 4.1 x10^3/uL (2.2-4.8); NEUTROPHILS % (AUTO) 56.3 % (42.0-75.0); PLATELET COUNT 208 X10^3/uL (150.0-450.0); RED BLOOD COUNT 3.88 X10^6/uL (3.5-5.4); RED CELL DISTRIBUTION WIDTH 13.1 % (11.6-16.5); WHITE BLOOD COUNT 7.3 X10^3/uL (3.6-10.0)
[2017-10-18] MEDS: SYNTHROID 75 mcg TAB PO SCH (06:07)
[2017-10-18 06:23] LABS: ALANINE AMINOTRANSFERASE 19 Units/L (12-78); ALBUMIN 2.8 g/dL (3.4-5.0); ALKALINE PHOSPHATASE 76 Units/L (46-116); ASPARTATE AMINO TRANSFERASE 24 Units/L (15-37); BLOOD UREA NITROGEN 15 mg/dL (7-18); CALCIUM 8.6 mg/dL (8.5-10.1); CARBON DIOXIDE 31.7 mmol/L (21-32); CHLORIDE 102 mmol/L (98-107); COR CA(FOR HYPOALB) 9.6 mg/dL (8.5-10.1); CREATININE 0.76 mg/dL (0.55-1.02); SODIUM 142 mmol/L (136-145); TOTAL PROTEIN 6.6 g/dL (6.4-8.2); eGFR BLACK RACES > 60 (>60); eGFR NON BLACK RACES > 60 (>60)
[2017-10-18] MEDS ORDERED: POTASSIUM CHL 60 MEQ/NS 0.45% 500 ML IV PRN (06:29)
[2017-10-18] MEDS ORDERED: MAG-OX TAB PO PRN (06:29)
[2017-10-18] MEDS ORDERED: POTASSIUM CHL 40 MEQ/NS 0.45% 500 ML IV PRN (06:29)
[2017-10-18] MEDS ORDERED: MAGNESIUM SULFATE 1 GM/100 mL PREMIX 1 GM/100 ML BAG IV PRN (06:29)
[2017-10-18] MEDS ORDERED: K-LYTE EFFERVESCENT PO PRN (06:29)
[2017-10-18] MEDS ORDERED: POTASSIUM CHLORIDE LIQ 20 MEQ UDC PO PRN (06:29)
[2017-10-18] MEDS ORDERED: K-RIDER 10 MEQ/NS 100 ML 10 MEQ/100 ML BAG IV PRN (06:29)
[2017-10-18 08:15] VITALS: BP 143/64
[2017-10-18] MEDS: COLCRYS TAB 0.6 MG PO SCH (08:40)
[2017-10-18] MEDS: LASIX IVP SCH (08:40)
[2017-10-18] MEDS: PEPCID TAB 20 MG PO SCH (08:41)
[2017-10-18] MEDS: LOPRESSOR TAB 50 MG PO SCH (08:41)
[2017-10-18] MEDS: MICRO K EXTEN CAP 10 MEQ PO SCH (08:41)
[2017-10-18] MEDS: VITAMIN B-12 PO SCH (08:41)
== END 2017-10-18 10:50 | disposition home or self-care (01) | DRG 603 ==
LOC: ICU 11:41 → UNDOADMOB 11:41 → ICU 12:10 → MED/SURG 10-14 14:55 → OBSVTOIN 10-15 09:00
PROVIDERS: ADMIT Internal Medicine; ATTEND Internal Medicine
DX: L03.116 Cellulitis of left lower limb (principal); I50.9 Heart failure, unspecified; M10.072 Idiopathic gout, left ankle and foot; E03.8 Other specified hypothyroidism; I27.9 Pulmonary heart disease, unspecified; K21.9 Gastro-esophageal reflux disease without esophagitis; R60.0 Localized edema; I51.7 Cardiomegaly; J44.9 Chronic obstructive pulmonary disease, unspecified; E87.6 Hypokalemia; R26.89 Other abnormalities of gait and mobility
CPT/HCPCS: 36415; 71045; 80053; 81001; 83735; 83880; 84550; 85025; 85652; 86140; 93005; 93306; 97535; A4222; G8987; G8988; G8990; G8991; G0378; J0713; J1940

== ENCOUNTER 2018-02-16 11:37 | Observation (INO) ==
[2018-02-16] MEDS ORDERED: NS 1000 ML 1,000 ML IV ONE (13:46)
[2018-02-16] MEDS ORDERED: TORADOL 15 MG VIAL IVP PRN (13:46)
[2018-02-16] MEDS: COLCRYS TAB 0.6 MG PO SCH ×2 (14:35→20:49)
[2018-02-16 14:41] LABS: BASOPHILS # (AUTO) 0.1 X10^3/uL (0.0-0.1); BASOPHILS % (AUTO) 0.5 % (0.2-1.0); EOSINOPHILS % (AUTO) 0.1 % (0.9-2.9); HEMATOCRIT 37.1 % (36.0-47.0); HEMOGLOBIN 12.6 g/dL (12.0-16.0); LYMPHOCYTES # (AUTO) 2.2 X10^3/uL (1.3-2.9); LYMPHOCYTES % (AUTO) 17.5 % (21.0-51.0); MEAN CORPUSCULAR HEMOGLOBIN 30.4 pg (27.0-34.0); MEAN CORPUSCULAR HGB CONC 34.1 g/dL (33.0-35.0); MEAN CORPUSCULAR VOLUME 89.2 fL (80.0-100.0); MEAN PLATELET VOLUME 9.3 fL (7.4-11.0); MONOCYTES # (AUTO) 1.1 x10^3/uL (0.3-0.8); NEUTROPHILS # (AUTO) 9.3 x10^3/uL (2.2-4.8); NEUTROPHILS % (AUTO) 72.9 % (42.0-75.0); PLATELET COUNT 178 X10^3/uL (150.0-450.0); RED BLOOD COUNT 4.16 X10^6/uL (3.5-5.4); WHITE BLOOD COUNT 12.7 X10^3/uL (3.6-10.0)
[2018-02-16 14:59] LABS: ALANINE AMINOTRANSFERASE 19 Units/L (12-78); ALBUMIN 3.3 g/dL (3.4-5.0); ALKALINE PHOSPHATASE 92 Units/L (46-116); ASPARTATE AMINO TRANSFERASE 24 Units/L (15-37); BLOOD UREA NITROGEN 15 mg/dL (7-18); CALCIUM 9.5 mg/dL (8.5-10.1); CARBON DIOXIDE 33.9 mmol/L (21-32); CHLORIDE 95 mmol/L (98-107); COR CA(FOR HYPOALB) 10.1 mg/dL (8.5-10.1); COR NA(FOR HYPERGLY) 136 mmol/L (136-145); CREATININE 1.05 mg/dL (0.55-1.02); SODIUM 135 mmol/L (136-145); TOTAL PROTEIN 7.3 g/dL (6.4-8.2); URIC ACID 9.1 mg/dL (2.6-6.0); eGFR NON BLACK RACES 53 (>60)
[2018-02-16] MEDS: NS 1000 ML 1,000 ML IV SCH ×2 (15:48→20:49)
[2018-02-16] MEDS ORDERED: K-DUR TAB 20 MEQ PO SCH (17:00)
[2018-02-16] MEDS: LASIX PO SCH (19:00)
[2018-02-16] MEDS: PEPCID TAB 20 MG PO SCH (20:49)
[2018-02-16] MEDS: LOPRESSOR TAB 50 MG PO SCH (20:49)
[2018-02-16] MEDS: NEURONTIN CAP 300 MG PO SCH (20:49)
[2018-02-16] MEDS: ZOCOR TAB 20 MG PO SCH (20:49)
[2018-02-17] MEDS: NS 1000 ML 1,000 ML IV SCH ×4 (03:05→20:36)
[2018-02-17 05:34] LABS: BASOPHILS % (AUTO) 0.2 % (0.2-1.0); EOSINOPHILS # (AUTO) 0.1 x10^3/uL (0.0-0.2); EOSINOPHILS % (AUTO) 1.1 % (0.9-2.9); HEMATOCRIT 32.6 % (36.0-47.0); HEMOGLOBIN 11.1 g/dL (12.0-16.0); LYMPHOCYTES # (AUTO) 2.1 X10^3/uL (1.3-2.9); LYMPHOCYTES % (AUTO) 26.5 % (21.0-51.0); MEAN CORPUSCULAR HEMOGLOBIN 30.6 pg (27.0-34.0); MEAN CORPUSCULAR HGB CONC 34.1 g/dL (33.0-35.0); MEAN CORPUSCULAR VOLUME 89.7 fL (80.0-100.0); MONOCYTES # (AUTO) 0.9 x10^3/uL (0.3-0.8); MONOCYTES % (AUTO) 11.1 % (0.0-13.0); NEUTROPHILS # (AUTO) 4.8 x10^3/uL (2.2-4.8); NEUTROPHILS % (AUTO) 61.1 % (42.0-75.0); PLATELET COUNT 154 X10^3/uL (150.0-450.0); RED BLOOD COUNT 3.64 X10^6/uL (3.5-5.4); RED CELL DISTRIBUTION WIDTH 14.8 % (11.6-16.5); WHITE BLOOD COUNT 7.8 X10^3/uL (3.6-10.0)
[2018-02-17 05:56] LABS: ALANINE AMINOTRANSFERASE 19 Units/L (12-78); ALBUMIN 2.6 g/dL (3.4-5.0); ALKALINE PHOSPHATASE 79 Units/L (46-116); ASPARTATE AMINO TRANSFERASE 23 Units/L (15-37); BLOOD UREA NITROGEN 11 mg/dL (7-18); CALCIUM 8.1 mg/dL (8.5-10.1); CARBON DIOXIDE 31.3 mmol/L (21-32); CHLORIDE 104 mmol/L (98-107); COR CA(FOR HYPOALB) 9.2 mg/dL (8.5-10.1); CREATININE 0.77 mg/dL (0.55-1.02); SODIUM 141 mmol/L (136-145); eGFR NON BLACK RACES > 60 (>60)
[2018-02-17] MEDS ORDERED: K-LYTE EFFERVESCENT PO ONE (06:08)
[2018-02-17] MEDS: SYNTHROID 75 mcg TAB PO SCH ×2 (06:13→15:55)
[2018-02-17] MEDS: LASIX PO SCH ×3 (06:13→18:49)
[2018-02-17] MEDS: COLCRYS TAB 0.6 MG PO SCH ×2 (08:45→20:34)
[2018-02-17] MEDS: LOPRESSOR TAB 50 MG PO SCH ×2 (08:46→20:34)
[2018-02-17] MEDS: PEPCID TAB 20 MG PO SCH ×2 (08:46→20:35)
[2018-02-17] MEDS: VITAMIN B-12 PO SCH (08:46)
[2018-02-17] MEDS ORDERED: CONSULT PHARMACY - ANTIBIOTIC XX SCH (11:00)
[2018-02-17] MEDS: FORTAZ or TAZICEF VIAL INJ 1 G in NS 100 ML IV + SPIKE MINIBAG* 100 ML IV SCH ×2 (15:54→21:00)
[2018-02-17] MEDS: GENTAMICIN TOPICAL OINT TOP SCH ×2 (15:56→20:36)
[2018-02-17] MEDS: TORADOL 15 MG VIAL IVP SCH (18:51)
[2018-02-17] MEDS: LOVENOX INJ 30 MG SYR SC SCH (18:52)
[2018-02-17] MEDS: NEURONTIN CAP 300 MG PO SCH (20:34)
[2018-02-17] MEDS: ZOCOR TAB 20 MG PO SCH (20:35)
[2018-02-17] MEDS: K-DUR TAB 20 MEQ PO SCH (20:35)
[2018-02-18] MEDS: TORADOL 15 MG VIAL IVP SCH ×2 (05:05→09:09)
[2018-02-18] MEDS: NS 1000 ML 1,000 ML IV SCH ×2 (05:27→11:54)
[2018-02-18] MEDS: FORTAZ or TAZICEF VIAL INJ 1 G in NS 100 ML IV + SPIKE MINIBAG* 100 ML IV SCH (05:27)
[2018-02-18] MEDS: LASIX PO SCH (06:19)
[2018-02-18 06:34] LABS: BASOPHILS % (AUTO) 0.7 % (0.2-1.0); EOSINOPHILS # (AUTO) 0.2 x10^3/uL (0.0-0.2); EOSINOPHILS % (AUTO) 3.5 % (0.9-2.9); HEMATOCRIT 34.8 % (36.0-47.0); HEMOGLOBIN 12.1 g/dL (12.0-16.0); LYMPHOCYTES # (AUTO) 1.8 X10^3/uL (1.3-2.9); LYMPHOCYTES % (AUTO) 29.6 % (21.0-51.0); MEAN CORPUSCULAR HEMOGLOBIN 30.9 pg (27.0-34.0); MEAN CORPUSCULAR HGB CONC 34.7 g/dL (33.0-35.0); MEAN CORPUSCULAR VOLUME 89.1 fL (80.0-100.0); MEAN PLATELET VOLUME 8.9 fL (7.4-11.0); MONOCYTES # (AUTO) 0.5 x10^3/uL (0.3-0.8); MONOCYTES % (AUTO) 8.6 % (0.0-13.0); NEUTROPHILS # (AUTO) 3.6 x10^3/uL (2.2-4.8); NEUTROPHILS % (AUTO) 57.6 % (42.0-75.0); PLATELET COUNT 166 X10^3/uL (150.0-450.0); RED BLOOD COUNT 3.91 X10^6/uL (3.5-5.4); WHITE BLOOD COUNT 6.2 X10^3/uL (3.6-10.0)
[2018-02-18 06:40] LABS: ALANINE AMINOTRANSFERASE 26 Units/L (12-78); ALBUMIN 2.6 g/dL (3.4-5.0); ALKALINE PHOSPHATASE 77 Units/L (46-116); ASPARTATE AMINO TRANSFERASE 29 Units/L (15-37); BLOOD UREA NITROGEN 9 mg/dL (7-18); CARBON DIOXIDE 30.2 mmol/L (21-32); CHLORIDE 103 mmol/L (98-107); COR CA(FOR HYPOALB) 10.1 mg/dL (8.5-10.1); SODIUM 140 mmol/L (136-145); TOTAL PROTEIN 6.1 g/dL (6.4-8.2); eGFR NON BLACK RACES > 60 (>60)
[2018-02-18] MEDS ORDERED: POTASSIUM CHLORIDE LIQ 20 MEQ UDC PO PRN (07:38)
[2018-02-18] MEDS ORDERED: POTASSIUM CHL 40 MEQ/NS 0.45% 500 ML IV PRN (07:38)
[2018-02-18] MEDS ORDERED: POTASSIUM CHL 60 MEQ/NS 0.45% 500 ML IV PRN (07:38)
[2018-02-18] MEDS ORDERED: MAGNESIUM SULFATE 1 GRAM/100 mL PREMIX 1 GM/100 ML BAG IV PRN (07:38)
[2018-02-18] MEDS ORDERED: K-RIDER 10 MEQ/NS 100 ML 10 MEQ/100 ML BAG IV PRN (07:38)
[2018-02-18] MEDS ORDERED: K-LYTE EFFERVESCENT PO PRN (07:38)
[2018-02-18] MEDS: GENTAMICIN TOPICAL OINT TOP SCH (09:10)
[2018-02-18] MEDS: LOPRESSOR TAB 50 MG PO SCH (09:10)
[2018-02-18] MEDS: COLCRYS TAB 0.6 MG PO SCH (09:10)
[2018-02-18] MEDS: K-DUR TAB 20 MEQ PO SCH (09:10)
[2018-02-18] MEDS: LOVENOX INJ 30 MG SYR SC SCH (09:10)
[2018-02-18] MEDS: PEPCID TAB 20 MG PO SCH (09:11)
[2018-02-18] MEDS: VITAMIN B-12 PO SCH (09:11)
[2018-02-18 11:54] VITALS: BP 138/92
--- NOTE | 2018-02-23 08:17 | DR.UPDATE ---
H&P Update History and Physical Update: WAS SEEN IN THE OFFICE TODAY. SHE WAS ADMITTED FOR TREATMENT OF GOUT TO BILATERAL FEET AND CELLULITIS OF THE RIGHT HEEL. A H&P WAS COMPLETED PRIOR TO ADMISSION. PATIENT HAS BEEN SEEN AND EXAMINED WITH NO CHANGES NOTED TO H&P. Changes noted: NO Yes with the following:
--- NOTE | 2018-02-23 08:25 | PCM.PROG ---
Progress Note - Progress Note for Day of Date of Exam: 02/17/18 - Subjective Subjective: WAS ADMITTED FOR GOUT TO THE LEFT FOOT GREAT TOES AND CELLULITIS TO THE RIGHT FOOT. TODAY, SHE IS ALERT AND ORIENTED, LYING IN BED ON MORNING ROUNDS. SHE CONTINUES WITH PAIN TO BILATERAL FEET. GREAT TOE ON THE LEFT FOOT CONTINUES WITH ERYTHEMA AND EDEMA. RIGHT FOOT ALSO CONTINUES WITH ERYTHEMA AND EDEMA. HER VITALS TODAY ARE 99.5-86-20-95%-148/67. LABS WERE OBTAINED. ABNORMAL LAB VALUES INCLUDE THE FOLLOWING: HGB 11.1, HCT 32.6, POTASSIUM 2.9, GLUCOSE 101, CALCIUM 8.1, TOTAL PROTEIN 6.0, ALBUMIN 2.6. SHE IS CURRENTLY RECEIVING COLCHICINE TORADOL IV, AND IV ANTIBIOTICS. WE WILL CONTINUE WITH CURRENT PLAN OF CARE TODAY AND START THE POTASSIUM PROTOCOL AND GENTAMYCIN CREAM TO WOUND. WE WILL ALSO START LOVENOX FOR DVT PROPHYLAXIS. OTHERWISE, WE PLAN TO FOLLOW UP WITH AM LABS AND CONTINUE TO MONITOR PATIENT. - Past Medical Family Social History Past Med/Fam/Surg Hx: No changes since H&P Allergies: Allergies Penicillins Allergy (Verified 10/13/17 13:10) Sulfa (Sulfonamide Antibiotics) [SULFA] Allergy (Verified 10/13/17 13:10) - Review of Systems ROS: No change since H&P - Vital Signs and I&O's Vital Signs: Temperature 97.6 F Pulse Rate [Right Brachial] 70 Respiratory Rate 20 Blood Pressure [Right Arm] 138/92 Blood Pressure [Left Arm] 143/64 Blood Pressure 143/64 O2 Sat by Pulse Oximetry 98 - Physical Exam Oriented: Normal Eyes: Normal Ear: Normal Nose: Normal Throat: Normal Respiratory: Normal Cardiovascular: Edema (BILATERAL FEET ). negative: S3, S4, Murmur : Normal Auscultation: Bowel Sounds: Normal Palpation: Normal Tenderness: Normal Skin: Red, Tender, Hot (BILATERAL FEET ) Musculoskeletal: Right, Left, Foot, Swelling, Tender Psychiatric: Normal Mood Description: Calm Affect: Normal Speech Pattern: Clear, Appropriate - Laboratory and Diagnostics Result Diagrams: 02/18/18 05:17 02/18/18 05:17 Labs: Laboratory WBC 6.2 X10^3/uL (3.6-10.0) 02/18/18 05:17 RBC 3.91 X10^6/uL (3.5-5.4) 02/18/18 05:17 Hgb 12.1 g/dL (12.0-16.0) 02/18/18 05:17 Hct 34.8 % (36.0-47.0) L 02/18/18 05:17 MCV 89.1 fL (80.0-100.0) 02/18/18 05:17 MCH 30.9 pg (27.0-34.0) 02/18/18 05:17 MCHC 34.7 g/dL (33.0-35.0) 02/18/18 05:17 RDW 15.0 % (11.6-16.5) 02/18/18 05:17 Plt Count 166 X10^3/uL (150.0-450.0) 02/18/18 05:17 MPV 8.9 fL (7.4-11.0) 02/18/18 05:17 Neut % (Auto) 57.6 % (42.0-75.0) 02/18/18 05:17 Lymph % (Auto) 29.6 % (21.0-51.0) 02/18/18 05:17 [place] % (Auto) 8.6 % (0.0-13.0) 02/18/18 05:17 Eos % (Auto) 3.5 % (0.9-2.9) H 02/18/18 05:17 Baso % (Auto) 0.7 % (0.2-1.0) 02/18/18 05:17 Neut # (Auto) 3.6 x10^3/uL (2.2-4.8) 02/18/18 05:17 Lymph # (Auto) 1.8 X10^3/uL (1.3-2.9) 02/18/18 05:17 [place] # (Auto) 0.5 x10^3/uL (0.3-0.8) 02/18/18 05:17 Eos # (Auto) 0.2 x10^3/uL (0.0-0.2) 02/18/18 05:17 Baso # (Auto) 0.0 X10^3/uL (0.0-0.1) 02/18/18 05:17 Absolute Nucleated RBC 0.0 /100WBC 02/18/18 05:17 Sodium 140 mmol/L (136-145) 02/18/18 05:17 Corrected Sodium TNP 02/18/18 05:17 Potassium 3.2 mmol/L (3.5-5.1) L 02/18/18 05:17 Chloride 103 mmol/L (98-107) 02/18/18 05:17 Carbon Dioxide 30.2 mmol/L (21-32) 02/18/18 05:17 BUN 9 mg/dL (7-18) 02/18/18 05:17 Creatinine 0.70 mg/dL (0.55-1.02) 02/18/18 05:17 Est GFR (MDRD) Af Amer > 60 (>60) 02/18/18 05:17 Est GFR (MDRD) Non-Af > 60 (>60) 02/18/18 05:17 Glucose 87 mg/dL (65-99) 02/18/18 05:17 Uric Acid 9.1 mg/dL (2.6-6.0) H 02/16/18 14:10 Calcium 9.0 mg/dL (8.5-10.1) 02/18/18 05:17 Corrected Calcium 10.1 mg/dL (8.5-10.1) 02/18/18 05:17 Magnesium 1.7 mg/dL (1.7-2.9) 02/18/18 05:17 Total Bilirubin 0.90 mg/dL (0.2-1.0) 02/18/18 05:17 AST 29 Units/L (15-37) 02/18/18 05:17 ALT 26 Units/L (12-78) 02/18/18 05:17 Alkaline Phosphatase 77 Units/L (46-116) 02/18/18 05:17 Total Protein 6.1 g/dL (6.4-8.2) L 02/18/18 05:17 Albumin 2.6 g/dL (3.4-5.0) L 02/18/18 05:17 Globulin 3.5 g/dL (2.5-4.5) 02/18/18 05:17 Albumin/Globulin Ratio 0.7 Ratio (1.1-2.1) L 02/18/18 05:17 - Plan (1) Cellulitis of right foot Status: Acute Plan: IV ANTIBIOITICS, CONTINUE TO MONITOR (2) Gout Status: Acute Qualifiers: Gout site: toe Gout etiology: unspecified cause Chronicity: acute Laterality: left Qualified Code(s): M10.9 - Gout, unspecified Plan: CONTINUE COLCHICINE, CONTINUE TO MONITOR
--- NOTE | 2018-02-25 23:40 | DR.CARTERD ---
- Discharge Summary for: Discharge Summary for Date of:: 02/18/18 - Admission Date Date of Admission: 02/16/18 - Admission Diagnoses Admission Diagnosis: (1) Cellulitis of right foot (2) Gout (3) Bilateral foot pain - Discharge Date Discharge Date: 02/18/18 - Discharge Diagnoses Discharge Diagnosis: (1) Cellulitis of right foot (2) Gout (3) Bilateral foot pain - Hospital Course Hospital Course: Ms. Mckeon is a 83 year old white female that lived alone and was a direct admit from our office. Patient presented complaining of severe pain to right great foot with a history of an ulcer and gouty arthritis in the past. Patient' s left great toe noted to be very red with marked edema past the joint capsule. Patient reported severe pain rated an 8 on a scale of 0-10 to both feet. Labs revealed elevated uric acid of 9.1. Patient had elevated white count of 12.7 and had hyponatremia at 135, with low potassium of 3.2. Patient had received Normal Saline 1000mls bolus IV X 1 and continued IVF @ 125 mls/hr. Patient received potassium supplement K-Lyte Effervescent 25meq PO X 1. Patient unable to ambulate independently in the home for ADLs with this episode. We admitted patient and started patient on colchicine 0.6 BID, gently hydrated, and treated with IV antibiotic therapy. Day two, Ms. Mckeon was admitted for gout of the left foot great toes and cellulitis to the right foot. She was alert and oriented. She continued with pain to bilateral feet. Great toe on the left foot conitnued with erythema and edema. Right foot also continued with erythema and edema. Vitals were: 99.5-86- 20-95%-148/67. Abnormal labs were: hgb 11.1, hct 32.6, potassium 2.9, glucose 101, calcium 8.1, tot protein 6.0, albumin 2.6. We continued Colchicine, Toradol , and IV antibiotics. We started the potassium protocol for hypokalemia and gentamicin cream to wound. We also started Lovenox for DVT prophylaxis. We continued to monitor. Day three, Patient had significant improvement in symptoms. Cellulitis was greatly improved with minimal pink area noted to right foot. Patient reported bilateral foot pain was resolved. Vital signs stable. Labs wnl. We planned for discharge. Instructions for medications and follow up were discussed with patient and family, both voiced understanding. Patient discharged home in stable condition with family. - Discharge Medications Discharge Medications: Home Medication List gabapentin 300 mg PO HS 02/16/18 [History] cefdinir 300 mg PO Q12H 10 Days #20 cap 02/18/18 [Rx] Prescriptions: cefdinir Immanuel Cast Home medications Levothyroxine Sodium [Synthroid] 75 mcg PO DAILY 07/30/12 famotidine 20 mg PO BID 07/30/12 Cyanocobalamin (Vitamin B-12) [Vitamin B-12] 1,000 mcg PO DAILY 10/13/17 furosemide 40 mg PO BID 10/13/17 metoprolol tartrate 50 mg PO BID 10/13/17 simvastatin [Zocor] 20 mg PO HS 10/13/17 colchicine [Colcrys] 0.6 mg PO BID #60 tab 10/18/17 diphenoxylate-atropine [Lomotil] 1 tab PO QID PRN #20 tab 02/23/18 - Discharge Disposition Discharge Disposition: Patient is to follow up in our office in one week.
== END 2018-02-18 11:50 | disposition home health service (06) ==
LOC: MED/SURG
PROVIDERS: ADMIT Internal Medicine; ATTEND Internal Medicine
DX: K21.9 Gastro-esophageal reflux disease without esophagitis; M10.072 Idiopathic gout, left ankle and foot; L03.115 Cellulitis of right lower limb; E03.8 Other specified hypothyroidism; I50.9 Heart failure, unspecified; M10.071 Idiopathic gout, right ankle and foot; E78.2 Mixed hyperlipidemia; M62.81 Muscle weakness (generalized)
CPT/HCPCS: 36415; 80053; 83735; 84132; 84550; 85025; 97167; A4222; G0378; J0713; J1650; J1885; J7030; J7050; J8499

== ENCOUNTER 2018-02-20 15:38 | Observation (INO) ==
[2018-02-20] MEDS ORDERED: MORPHINE SULFATE INJ 2 MG INJ IVP ONE (18:41)
[2018-02-20] MEDS ORDERED: NS 1000 ML 1,000 ML ONE (18:43)
[2018-02-20] MEDS ORDERED: ZOFRAN INJ 4 MG VIAL IVP ONE (18:45)
[2018-02-20] MEDS ORDERED: NS 1000 ML 1,000 ML IV SCH (19:00)
[2018-02-20 19:26] LABS: BASOPHILS % (AUTO) 0.5 % (0.2-1.0); EOSINOPHILS # (AUTO) 0.3 x10^3/uL (0.0-0.2); EOSINOPHILS % (AUTO) 4.2 % (0.9-2.9); HEMATOCRIT 39.6 % (36.0-47.0); HEMOGLOBIN 13.6 g/dL (12.0-16.0); LYMPHOCYTES # (AUTO) 1.6 X10^3/uL (1.3-2.9); LYMPHOCYTES % (AUTO) 23.1 % (21.0-51.0); MEAN CORPUSCULAR HEMOGLOBIN 30.6 pg (27.0-34.0); MEAN CORPUSCULAR HGB CONC 34.3 g/dL (33.0-35.0); MEAN CORPUSCULAR VOLUME 89.1 fL (80.0-100.0); MONOCYTES # (AUTO) 0.6 x10^3/uL (0.3-0.8); MONOCYTES % (AUTO) 8.2 % (0.0-13.0); NEUTROPHILS # (AUTO) 4.5 x10^3/uL (2.2-4.8); PLATELET COUNT 216 X10^3/uL (150.0-450.0); RED BLOOD COUNT 4.44 X10^6/uL (3.5-5.4)
[2018-02-20] MEDS ORDERED: MORPHINE SULFATE INJ 2 MG INJ ONE (19:33)
[2018-02-20] MEDS ORDERED: ZOFRAN INJ 4 MG VIAL ONE (19:33)
[2018-02-20 19:38] LABS: ALANINE AMINOTRANSFERASE 52 Units/L (12-78); ALBUMIN 3.7 g/dL (3.4-5.0); ALKALINE PHOSPHATASE 99 Units/L (46-116); ASPARTATE AMINO TRANSFERASE 76 Units/L (15-37); BLOOD UREA NITROGEN 9 mg/dL (7-18); CALCIUM 9.6 mg/dL (8.5-10.1); CARBON DIOXIDE 34.2 mmol/L (21-32); CHLORIDE 99 mmol/L (98-107); CREATININE 0.84 mg/dL (0.55-1.02); SODIUM 139 mmol/L (136-145); TOTAL PROTEIN 7.8 g/dL (6.4-8.2); eGFR NON BLACK RACES > 60 (>60)
--- NOTE | 2018-02-20 21:16 | RAD ---
Left foot three views Indication: Left foot pain and swelling Findings: There is enthesopathy of the calcaneus. There is midfoot degenerative change and global mil d osteopenia with vascular calcifications, possibly from diabetes. Soft tissue swelling is seen about the foot. Hammertoe deformity is seen at the 2nd and 3rd toe and probably the 4th toe. Great toe MTP joint degenerative change noted with IP joint DJD seen. Impression: 1. Degenerative change, osteophyte anemia and hammertoe deformity at the 2nd through 4th toes. Hammer toe deformity obscures evaluation of the phalanges of the 2nd through 4th toes. Correlate clinically for signs of infection or focal tenderness to exclude subtle fracture Reported By:
[2018-02-20 21:38] LABS: BILIRUBIN,URINE NEGATIVE (NEGATIVE); BLOOD/HEMOGLOBIN,URINE 1+ (NEGATIVE); GLUCOSE, URINE NEGATIVE (NEGATIVE); KETONES,URINE NEGATIVE (NEGATIVE); LEUKOCYTE ESTERASE ,URINE NEGATIVE (NEGATIVE); NITRITES,URINE NEGATIVE (NEGATIVE); PROTEIN,URINE NEGATIVE (NEGATIVE); UROBILINOGEN,URINE NORMAL (NORMAL)
[2018-02-20 21:39] LABS: APPEARANCE,URINE CLEAR (CLEAR); COLOR,URINE PALE YELLOW (YELLOW)
[2018-02-20 21:53] LABS: BACTERIA,URINE NEGATIVE /HPF (NEGATIVE); RBC,URINE 0-2 /HPF (NONE SEEN); SQUAMOUS EPITHELIAL CELL,UR NEGATIVE /HPF (NEGATIVE)
--- NOTE | 2018-02-20 22:23 | CT ---
CT abdomen pelvis without contrast Indication: Abdominal pain Findings: Noncontrast multiplanar images are reviewed Findings: There is cardiac chamber enlargement. The lung bases are clear. The noncontrast appearance of the liver, pancreas and spleen are within normal limits. The gallbladder is distended and mild per icholecystic fluid and wall thickening is present. Correlation with cholecystitis is recommended. The small bowel is negative for obstruction. There is colonic stool retention consistent with mild to mo derate constipation. There is no obstructive uropathy or retroperitoneal fluid adenopathy or mass. The urinary bladder is distended but appears clear. Uterus and adnexa are normal. The skeleton is intact. There is scattered atherosclerosis without aneurysm. Impression: 1. Distention of the gallbladder lumen with wall thickening and pericholecystic fluid the findings suggest developing cholecystitis. 2. Cardiomegaly. 3. Mild constipation. Reported By:
[2018-02-20] MEDS ORDERED: K-LYTE EFFERVESCENT PO ONE (23:23)
[2018-02-20] MEDS ORDERED: K-LYTE EFFERVESCENT ONE (23:24)
[2018-02-20] MEDS ORDERED: MORPHINE SULFATE INJ 2 MG INJ IVP PRN (23:26)
[2018-02-20] MEDS ORDERED: ZOFRAN INJ 4 MG VIAL IVP PRN (23:26)
[2018-02-20] MEDS ORDERED: TYLENOL 325 MG TAB PO PRN (23:26)
[2018-02-21] MEDS: NS 1000 ML 1,000 ML IV SCH ×3 (00:15→20:24)
[2018-02-21] MEDS ORDERED: ROCEPHIN VIAL 1 GRAM ONE (00:30)
[2018-02-21] MEDS ORDERED: NS 100 ML IV + SPIKE MINIBAG* 100 ML IV ONE (00:31)
[2018-02-21] MEDS: ROCEPHIN VIAL 1 GRAM 1 G in NS 100 ML IV + SPIKE MINIBAG* 100 ML IV SCH ×2 (00:36→09:20)
[2018-02-21 01:11] VITALS: BMI 20.9
[2018-02-21 05:21] LABS: BASOPHILS % (AUTO) 0.7 % (0.2-1.0); EOSINOPHILS # (AUTO) 0.3 x10^3/uL (0.0-0.2); EOSINOPHILS % (AUTO) 4.3 % (0.9-2.9); HEMATOCRIT 35.7 % (36.0-47.0); HEMOGLOBIN 12.2 g/dL (12.0-16.0); LYMPHOCYTES # (AUTO) 1.8 X10^3/uL (1.3-2.9); LYMPHOCYTES % (AUTO) 27.8 % (21.0-51.0); MEAN CORPUSCULAR HEMOGLOBIN 30.2 pg (27.0-34.0); MEAN CORPUSCULAR VOLUME 88.8 fL (80.0-100.0); MEAN PLATELET VOLUME 8.5 fL (7.4-11.0); MONOCYTES # (AUTO) 0.5 x10^3/uL (0.3-0.8); MONOCYTES % (AUTO) 7.9 % (0.0-13.0); NEUTROPHILS # (AUTO) 3.9 x10^3/uL (2.2-4.8); NEUTROPHILS % (AUTO) 59.3 % (42.0-75.0); PLATELET COUNT 181 X10^3/uL (150.0-450.0); RED BLOOD COUNT 4.02 X10^6/uL (3.5-5.4); RED CELL DISTRIBUTION WIDTH 15.1 % (11.6-16.5); WHITE BLOOD COUNT 6.5 X10^3/uL (3.6-10.0)
[2018-02-21 05:59] LABS: ALANINE AMINOTRANSFERASE 47 Units/L (12-78); ALKALINE PHOSPHATASE 80 Units/L (46-116); ASPARTATE AMINO TRANSFERASE 62 Units/L (15-37); BLOOD UREA NITROGEN 8 mg/dL (7-18); CARBON DIOXIDE 32.8 mmol/L (21-32); CHLORIDE 101 mmol/L (98-107); COR CA(FOR HYPOALB) 9.8 mg/dL (8.5-10.1); CREATININE 0.81 mg/dL (0.55-1.02); SODIUM 139 mmol/L (136-145); TOTAL PROTEIN 6.4 g/dL (6.4-8.2); eGFR NON BLACK RACES > 60 (>60)
[2018-02-21] MEDS ORDERED: POTASSIUM CHLORIDE LIQ 20 MEQ UDC PO PRN (06:08)
[2018-02-21] MEDS ORDERED: K-LYTE EFFERVESCENT PO PRN (06:08)
[2018-02-21] MEDS ORDERED: K-RIDER 10 MEQ/NS 100 ML 10 MEQ/100 ML BAG IV PRN (06:08)
[2018-02-21] MEDS ORDERED: POTASSIUM CHL 40 MEQ/NS 0.45% 500 ML IV PRN (06:08)
[2018-02-21] MEDS ORDERED: POTASSIUM CHL 60 MEQ/NS 0.45% 500 ML IV PRN (06:08)
[2018-02-21] MEDS: SYNTHROID 75 mcg TAB PO SCH (06:12)
[2018-02-21 07:55] LABS: AMYLASE 27 Units/L (25-115); LIPASE 137 Units/L (73-393)
[2018-02-21] MEDS ORDERED: LEVOTHYROXINE SODIUM 75 MCG PO SCH (09:00)
[2018-02-21] MEDS ORDERED: PATIENT'S HOME MEDICATION (Cyanocobalamin (Vitamin B-12) [Vitamin B-12] 1,000 MCG) PO SCH (09:00)
[2018-02-21] MEDS: VITAMIN B-12 PO SCH (09:16)
[2018-02-21] MEDS: LEVAQUIN TAB 500 MG PO SCH (09:16)
[2018-02-21] MEDS: LOPRESSOR TAB 50 MG PO SCH ×2 (09:16→20:24)
[2018-02-21] MEDS: PEPCID 20 MG IV PREMIX* 20 MG/50 ML BAG IV SCH ×2 (09:16→20:24)
--- NOTE | 2018-02-21 09:39 | DR.H&P ---
H&P - History & Physical for Day of: H&P Date: 02/20/18 - Chief Complaint Chief Complaint: ABDOMINAL PAIN, DIARRHEA - History of Present Illness History of Present Illness: 83 WF ER ADMISSION, RESIDENT OF MINERAL. PT PRESENTED WITH CO ABDOMINAL PAIN AND DIARRHEA. PT RECENTLY ON ATBX WITH INCREASED DIARRHEA, CT IN ER REVEALED POSSIBLE CHOLESYTITIS. PT HAS PMH FOR HTN , CAD, OA, GERD, DEMENTIA. PT ADMITTED FOR TREATMENT AND EVALUATION FOR ACUTE GI ILLNESS - Past Medical History Past Medical History: Arthritis, Coronary Artery Disease, Dyslipidemia, GERD, Hypertension, Hyperthyroidism, Hypothyroidism Additional Medical History: Diarrhea, Urinary Tract Infections, Gout - Past Surgical History Surgical History: CABG/Valve Surgery, Tonsillectomy - Family History Family Medical History: Cancer, [place] - Social History Does patient currently use any type of tobacco product: No Have you used tobacco products in the last 12 months: No Type of Tobacco Use: None Does any household member use tobacco: No Alcohol Use: None Drug Use: None - Medications Home Medications: Penicillins Allergy (Verified 10/13/17 13:10) Sulfa (Sulfonamide Antibiotics) [SULFA] Allergy (Verified 10/13/17 13:10) - Review of Systems Constitutional: Weakness Eyes: No Symptoms Reported ENT: No Symptoms Reported Cardiovascular: No Symptoms Reported Gastrointestinal: Abdominal Pain Genitourinary: No Symptoms Reported Musculoskeletal: No Symptoms Reported Skin: No Symptoms Reported Neurological: No Symptoms Reported - Physical Exam Vital Signs: Temperature 97.5 F Pulse Rate [Left Brachial] 55 Pulse Rate 78 Respiratory Rate 20 Blood Pressure [Right Arm] 134/60 Blood Pressure [Left Arm] 224/91 Blood Pressure 207/84 O2 Sat by Pulse Oximetry 96 Oriented: Normal Eyes: Normal Ear: Normal Nose: Normal Throat: Normal Respiratory: RLL Diminished, LLL Diminished Cardiovascular: Normal : Normal Auscultation: Bowel Sounds: Increased Tenderness: RUQ, Epigastric Skin: Decreased Turgur Musculoskeletal: Motor Deficit, Instability, Crepitance Psychiatric: Anxiety Affect: Anxious Speech Pattern: Clear, Appropriate - Assessment/Plan (1) Abdominal pain Status: Acute Plan: ADMIT, STOOL STUDIES. VERIFY HOME MEDS, PAIN AND NAUSEA CONTROL. HTN MONIOTRING, CONSULT DR PHAM. US Q AM, IV ATBX (2) Acute diarrhea Status: Acute (3) Gout Qualifiers: Status: Acute (4) Coronary arteriosclerosis Status: Chronic (5) Hyperlipidemia Status: Chronic (6) CHF (congestive heart failure) Qualifiers: Status: Chronic (7) Hypothyroidism Qualifiers: Status: Chronic - Allergies Allergies/Adverse Reactions: Allergies Allergy/AdvReac Type Severity Reaction Status Date / Time Penicillins Allergy Verified 10/13/17 13:10 Sulfa (Sulfonamide Allergy Verified 10/13/17 13:10 Antibiotics) [SULFA]
[2018-02-21] MEDS: MAGNESIUM SULFATE 1 GRAM/100 mL PREMIX 1 GM/100 ML BAG IV PRN (09:55)
[2018-02-21 10:08] LABS: CRYPTOSPORIDIUM PARVUM ANTIGEN NEGATIVE (NEGATIVE); GIARDIA LAMBLIA ANTIGEN NEGATIVE (NEGATIVE)
--- NOTE | 2018-02-21 17:20 | US ---
HISTORY: Abdominal pain abnormal CT Study: Right upper quadrant abdominal ultrasound Comparison: CT yesterday Technique: Multiple franklin scale and color flow Doppler images of the right upper quadrant were obtaine d. Findings: The liver is normal in echotexture and size. No focal intraparenchymal mass or intrahepatic biliary ductal dilatation can be observed. The gallbladder fails to demonstrate evidence for cholelithiasis or layering sludge. The common bile duct is unremarkable measuring 3 mm what. No pericholecystic fl uid or gallbladder wall thickening can be observed. The right kidney appears normal in size without focal parenchymal mass or nephrolithiasis. The right kidney measurers 9.4 cm length. No hydronephrosis or perirenal fluid can be observed. The pancreat ic head and body are unremarkable. The pancreatic tail is largely obscured by overlying bowel gas. IMPRESSION: 1. Unremarkable examination of the right upper quadrant. Reported By:
[2018-02-21] MEDS: LASIX PO SCH (17:40)
[2018-02-21] MEDS: NEURONTIN CAP 300 MG PO SCH (20:24)
[2018-02-21] MEDS: ZOCOR TAB 20 MG PO SCH (20:24)
[2018-02-22 05:28] LABS: BASOPHILS % (AUTO) 0.6 % (0.2-1.0); EOSINOPHILS # (AUTO) 0.3 x10^3/uL (0.0-0.2); HEMOGLOBIN 12.7 g/dL (12.0-16.0); LYMPHOCYTES # (AUTO) 1.7 X10^3/uL (1.3-2.9); LYMPHOCYTES % (AUTO) 28.2 % (21.0-51.0); MEAN CORPUSCULAR HEMOGLOBIN 30.7 pg (27.0-34.0); MEAN CORPUSCULAR HGB CONC 34.3 g/dL (33.0-35.0); MEAN CORPUSCULAR VOLUME 89.3 fL (80.0-100.0); MONOCYTES # (AUTO) 0.6 x10^3/uL (0.3-0.8); MONOCYTES % (AUTO) 9.2 % (0.0-13.0); NEUTROPHILS # (AUTO) 3.5 x10^3/uL (2.2-4.8); PLATELET COUNT 169 X10^3/uL (150.0-450.0); RED BLOOD COUNT 4.14 X10^6/uL (3.5-5.4); WHITE BLOOD COUNT 6.1 X10^3/uL (3.6-10.0)
[2018-02-22 05:46] LABS: ALANINE AMINOTRANSFERASE 42 Units/L (12-78); ALBUMIN 2.8 g/dL (3.4-5.0); ALKALINE PHOSPHATASE 78 Units/L (46-116); ASPARTATE AMINO TRANSFERASE 55 Units/L (15-37); BLOOD UREA NITROGEN 6 mg/dL (7-18); CALCIUM 9.2 mg/dL (8.5-10.1); CARBON DIOXIDE 32.7 mmol/L (21-32); CHLORIDE 103 mmol/L (98-107); COR CA(FOR HYPOALB) 10.2 mg/dL (8.5-10.1); CREATININE 0.71 mg/dL (0.55-1.02); SODIUM 140 mmol/L (136-145); TOTAL PROTEIN 6.3 g/dL (6.4-8.2); eGFR NON BLACK RACES > 60 (>60)
[2018-02-22] MEDS: LASIX PO SCH ×2 (05:59→17:22)
[2018-02-22] MEDS: SYNTHROID 75 mcg TAB PO SCH (05:59)
[2018-02-22] MEDS: NS 1000 ML 1,000 ML IV SCH (05:59)
[2018-02-22] MEDS: VITAMIN B-12 PO SCH (09:19)
[2018-02-22] MEDS: LEVAQUIN TAB 500 MG PO SCH (09:19)
[2018-02-22] MEDS: PEPCID 20 MG IV PREMIX* 20 MG/50 ML BAG IV SCH ×2 (09:20→21:00)
[2018-02-22] MEDS: LOPRESSOR TAB 50 MG PO SCH ×2 (09:20→21:00)
[2018-02-22] MEDS: ROCEPHIN VIAL 1 GRAM 1 G in NS 100 ML IV + SPIKE MINIBAG* 100 ML IV SCH (09:20)
[2018-02-22] MEDS: NEURONTIN CAP 300 MG PO SCH (20:59)
[2018-02-22] MEDS: ZOCOR TAB 20 MG PO SCH (21:00)
[2018-02-23] MEDS: NS 1000 ML 1,000 ML IV SCH ×2 (01:45→11:49)
[2018-02-23 05:26] LABS: BASOPHILS # (AUTO) 0.1 X10^3/uL (0.0-0.1); BASOPHILS % (AUTO) 0.8 % (0.2-1.0); EOSINOPHILS # (AUTO) 0.3 x10^3/uL (0.0-0.2); EOSINOPHILS % (AUTO) 4.3 % (0.9-2.9); HEMATOCRIT 38.3 % (36.0-47.0); LYMPHOCYTES # (AUTO) 2.1 X10^3/uL (1.3-2.9); LYMPHOCYTES % (AUTO) 29.5 % (21.0-51.0); MEAN CORPUSCULAR HEMOGLOBIN 30.1 pg (27.0-34.0); MEAN CORPUSCULAR HGB CONC 33.9 g/dL (33.0-35.0); MEAN CORPUSCULAR VOLUME 88.7 fL (80.0-100.0); MEAN PLATELET VOLUME 8.2 fL (7.4-11.0); MONOCYTES # (AUTO) 0.6 x10^3/uL (0.3-0.8); MONOCYTES % (AUTO) 8.8 % (0.0-13.0); NEUTROPHILS # (AUTO) 4.1 x10^3/uL (2.2-4.8); NEUTROPHILS % (AUTO) 56.6 % (42.0-75.0); PLATELET COUNT 198 X10^3/uL (150.0-450.0); RED BLOOD COUNT 4.32 X10^6/uL (3.5-5.4); RED CELL DISTRIBUTION WIDTH 15.3 % (11.6-16.5); WHITE BLOOD COUNT 7.2 X10^3/uL (3.6-10.0)
[2018-02-23 05:44] LABS: ALANINE AMINOTRANSFERASE 40 Units/L (12-78); ALBUMIN 2.9 g/dL (3.4-5.0); ALKALINE PHOSPHATASE 82 Units/L (46-116); ASPARTATE AMINO TRANSFERASE 38 Units/L (15-37); BLOOD UREA NITROGEN 5 mg/dL (7-18); CALCIUM 9.5 mg/dL (8.5-10.1); CARBON DIOXIDE 32.1 mmol/L (21-32); CHLORIDE 101 mmol/L (98-107); COR CA(FOR HYPOALB) 10.4 mg/dL (8.5-10.1); CREATININE 0.81 mg/dL (0.55-1.02); SODIUM 139 mmol/L (136-145); TOTAL PROTEIN 6.5 g/dL (6.4-8.2); eGFR NON BLACK RACES > 60 (>60)
[2018-02-23] MEDS: LASIX PO SCH (06:01)
[2018-02-23] MEDS: SYNTHROID 75 mcg TAB PO SCH (06:02)
[2018-02-23] MEDS ORDERED: K-LYTE EFFERVESCENT PO ONE (06:14)
[2018-02-23] MEDS: VITAMIN B-12 PO SCH (08:38)
[2018-02-23] MEDS: PEPCID 20 MG IV PREMIX* 20 MG/50 ML BAG IV SCH (08:38)
[2018-02-23] MEDS: LOPRESSOR TAB 50 MG PO SCH (08:38)
[2018-02-23] MEDS: LEVAQUIN TAB 500 MG PO SCH (08:38)
[2018-02-23] MEDS: ROCEPHIN VIAL 1 GRAM 1 G in NS 100 ML IV + SPIKE MINIBAG* 100 ML IV SCH (08:39)
--- NOTE | 2018-02-23 09:26 | PCM.PROG ---
Progress Note - Progress Note for Day of Date of Exam: 02/22/18 - Subjective Subjective: 83 WF ER ADMISSION WITH CO DIARRHEA. PT HAS STOOL STUDIES COLLECTED ON ADMISSION, NEGATIVE AT THIS TIME. PT HAD CT ABD/PELVIS WITH POSSIBLE GALLBLADDER INFLAMMATION, GB US NEGATIVE. PT REPORTS SLIGHT IMPROVEMENT IN DIARRHEA. PLAN TO CONTINUE GENTLE HYDRATION, POTASSIUM REPLACEMENT, AM LABS, POSSIBLE DC ON FRIDAY - Past Medical Family Social History Past Med/Fam/Surg Hx: No changes since H&P Allergies: Allergies Penicillins Allergy (Verified 10/13/17 13:10) Sulfa (Sulfonamide Antibiotics) [SULFA] Allergy (Verified 10/13/17 13:10) - Review of Systems ROS: No change since H&P - Vital Signs and I&O's Vital Signs: Temperature 97.6 F Pulse Rate [Left Brachial] 57 Pulse Rate 78 Respiratory Rate 18 Blood Pressure [Right Arm] 134/59 Blood Pressure [Left Arm] 118/56 Blood Pressure 207/84 O2 Sat by Pulse Oximetry 99 Intake and Output: Intake & Output 02/20/18 02/21/18 02/22/18 02/23/18 11:59 11:59 11:59 11:59 Intake Total 400 / 400 3552 / 3552 2600 / 2600 Balance 400 / 400 3552 / 3552 2600 / 2600 - Physical Exam Oriented: Normal Eyes: Normal Ear: Normal Nose: Normal Throat: Normal Respiratory: Diminished Cardiovascular: Normal : Normal Auscultation: Bowel Sounds: Increased Tenderness: RUQ, Epigastric Skin: Decreased Turgur Musculoskeletal: Motor Deficit, Instability, Crepitance Psychiatric: Anxiety Affect: Anxious Speech Pattern: Clear, Appropriate - Laboratory and Diagnostics Result Diagrams: 02/23/18 05:05 02/23/18 08:25 Labs: Laboratory WBC 7.2 X10^3/uL (3.6-10.0) 02/23/18 05:05 RBC 4.32 X10^6/uL (3.5-5.4) 02/23/18 05:05 Hgb 13.0 g/dL (12.0-16.0) 02/23/18 05:05 Hct 38.3 % (36.0-47.0) 02/23/18 05:05 MCV 88.7 fL (80.0-100.0) 02/23/18 05:05 MCH 30.1 pg (27.0-34.0) 02/23/18 05:05 MCHC 33.9 g/dL (33.0-35.0) 02/23/18 05:05 RDW 15.3 % (11.6-16.5) 02/23/18 05:05 Plt Count 198 X10^3/uL (150.0-450.0) 02/23/18 05:05 MPV 8.2 fL (7.4-11.0) 02/23/18 05:05 Neut % (Auto) 56.6 % (42.0-75.0) 02/23/18 05:05 Lymph % (Auto) 29.5 % (21.0-51.0) 02/23/18 05:05 [place] % (Auto) 8.8 % (0.0-13.0) 02/23/18 05:05 Eos % (Auto) 4.3 % (0.9-2.9) H 02/23/18 05:05 Baso % (Auto) 0.8 % (0.2-1.0) 02/23/18 05:05 Neut # (Auto) 4.1 x10^3/uL (2.2-4.8) 02/23/18 05:05 Lymph # (Auto) 2.1 X10^3/uL (1.3-2.9) 02/23/18 05:05 [place] # (Auto) 0.6 x10^3/uL (0.3-0.8) 02/23/18 05:05 Eos # (Auto) 0.3 x10^3/uL (0.0-0.2) H 02/23/18 05:05 Baso # (Auto) 0.1 X10^3/uL (0.0-0.1) 02/23/18 05:05 Absolute Nucleated RBC 0.0 /100WBC 02/23/18 05:05 Sodium 139 mmol/L (136-145) 02/23/18 05:05 Corrected Sodium TNP 02/23/18 05:05 Potassium 3.8 mmol/L (3.5-5.1) 02/23/18 08:25 Chloride 101 mmol/L (98-107) 02/23/18 05:05 Carbon Dioxide 32.1 mmol/L (21-32) H 02/23/18 05:05 BUN 5 mg/dL (7-18) L 02/23/18 05:05 Creatinine 0.81 mg/dL (0.55-1.02) 02/23/18 05:05 Est GFR (MDRD) Af Amer > 60 (>60) 02/23/18 05:05 Est GFR (MDRD) Non-Af > 60 (>60) 02/23/18 05:05 Glucose 93 mg/dL (65-99) 02/23/18 05:05 Calcium 9.5 mg/dL (8.5-10.1) 02/23/18 05:05 Corrected Calcium 10.4 mg/dL (8.5-10.1) H 02/23/18 05:05 Magnesium 1.9 mg/dL (1.7-2.9) 02/23/18 05:12 Total Bilirubin 0.50 mg/dL (0.2-1.0) 02/23/18 05:05 AST 38 Units/L (15-37) H 02/23/18 05:05 ALT 40 Units/L (12-78) 02/23/18 05:05 Alkaline Phosphatase 82 Units/L (46-116) 02/23/18 05:05 Total Protein 6.5 g/dL (6.4-8.2) 02/23/18 05:05 Albumin 2.9 g/dL (3.4-5.0) L 02/23/18 05:05 Globulin 3.6 g/dL (2.5-4.5) 02/23/18 05:05 Albumin/Globulin Ratio 0.8 Ratio (1.1-2.1) L 02/23/18 05:05 Amylase 27 Units/L (25-115) 02/21/18 04:43 Lipase 137 Units/L (73-393) 02/21/18 04:43 Specimen Type Catherized urine 02/20/18 20:50 Urine Color Pale yellow (YELLOW) 02/20/18 20:50 Urine Appearance Clear (CLEAR) 02/20/18 20:50 Urine pH 6.0 (5.0 - 8.0) 02/20/18 20:50 Ur Specific [place] 1.010 (1.000-1.030) 02/20/18 20:50 Urine Protein Negative (NEGATIVE) 02/20/18 20:50 Urine Glucose (UA) Negative (NEGATIVE) 02/20/18 20:50 Urine Ketones Negative (NEGATIVE) 02/20/18 20:50 Urine Occult Blood 1+ (NEGATIVE) 02/20/18 20:50 Urine Nitrite Negative (NEGATIVE) 02/20/18 20:50 Urine Bilirubin Negative (NEGATIVE) 02/20/18 20:50 Urine Urobilinogen Normal (NORMAL) 02/20/18 20:50 Ur Leukocyte Esterase Negative (NEGATIVE) 02/20/18 20:50 Urine RBC 0-2 /HPF (NONE SEEN) 02/20/18 20:50 Urine WBC None seen /HPF (NONE SEEN) 02/20/18 20:50 Ur Squamous Epith Cells Negative /HPF (NEGATIVE) 02/20/18 20:50 Urine Bacteria Negative /HPF (NEGATIVE) 02/20/18 20:50 Ur Culture Indicated? No/not indicated 02/20/18 20:50 Stool Description 75g,unformed,perez 02/21/18 08:39 Stl C. diff Tox B Gene Negative (NEGATIVE) 02/21/18 08:39 Stl C. diff [id number] Negative (NEGATIVE) 02/21/18 08:39 Cryptosporid parvum Ag Negative (NEGATIVE) 02/21/18 08:39 Giardia lamblia Ag Negative (NEGATIVE) 02/21/18 08:39 - Plan (1) Abdominal pain Status: Acute Plan: STOOL STUDIES NEGATIVE, GB US WITHOUT ACUTE CHOLECYSTITS. PAIN AND NAUSEA CONTROL. HTN MONIOTRING, (2) Acute diarrhea Status: Acute Plan: STOOL STUDIES, ANTIDIARRHEA MEDICATION PRN (3) Gout Status: Acute Qualifiers: Gout site: toe Gout etiology: unspecified cause Chronicity: acute Laterality: left Qualified Code(s): M10.9 - Gout, unspecified (4) Coronary arteriosclerosis Status: Chronic (5) Hyperlipidemia Status: Chronic (6) CHF (congestive heart failure) Status: Chronic Qualifiers: (7) Hypothyroidism Status: Chronic Qualifiers:
[2018-02-23] MEDS: MAGNESIUM SULFATE 1 GRAM/100 mL PREMIX 1 GM/100 ML BAG IV PRN ×2 (10:55→12:12)
[2018-02-23 11:36] VITALS: BP 123/74
--- NOTE | 2018-03-16 10:09 | DR.EXTPAIN ---
HPI Time seen Time seen: 18:30 PCP Primary Care Physician: JESUS HPI Comment HPI Comment: DAUGHTER SAID MEDICATIONS ARE CAUSING DIARRHEA. NO FEVER. SOME ABDOMINAL PAIN. Complaint/Symptoms Chief Complaint Doctor Comments: patient seen 02/20/18 at 18:30 pm. PAIN LEFT FOOT. ON MEDS BUT STILL HURTING AND GETTING WORSE. ALSO HAVING DIARRHEA. Chief Complaint:: PT C/O SEVERE GOUT TO LEFT FOOT. PT WAS ADMITTED TO HOSPITAL LAST FRIDAY AND WAS RELEASED LAST FRIDAY. PTS DAUGHTER STATES SHE CANNOT STAY OFF OF HER FOOT DUE TO HER MEDICATIONS ARE CAUSING "SEVERE RUNNING OF BOWELS", AND PT HAVING TO GO TO [place]. DAUGHTER STATES THE GOUT IS WORSE THAN WHEN SHE WAS ADMITTED ON FRIDAY. Nurses notes reviewed Nurses Notes Review: Yes Source History Provided: Patient Mode of arrival Mode of Arrival: Ambulatory Timing Onset of Chief Complaint: 02/16/18 Context History of: Gout and Arthritis Associated signs and symptoms Associated Signs and Symptoms: Weakness, Pain, Swelling, Shortness of Breath and Other (DIARRHEA.) PMH PMH Past Medical History: Yes Past Medical History: Arthritis, Coronary Artery Disease, Dyslipidemia, GERD, Hypertension, Hyperthyroidism and Hypothyroidism Past Medical History Comment: C-DIFF Past Surgical History: Yes Surgical History: CABG/Valve Surgery and Tonsillectomy Family History History of Family Medical Conditions: Yes Family Medical History: Cancer and [place] Social History Does patient currently use any type of tobacco product: No Have you used tobacco products in the last 12 months: No Type of Tobacco Use: None Does any household member use tobacco: No Alcohol Use: None Do you use any recreational Drugs:: No Lives With: Alone Lives Where: Home infectious screening In the last 2 months have you had wt loss of >10#?: NO Have you had fever, night sweats or hemotysis?: No Have you traveled outside the country in the last 6 months?: No Isolation: Standard ROS Review of Systems Constitutional: Weakness and Fatigue; negative Chills and Fever Eyes: No Symptoms Reported ENTM: No Symptoms Reported Respiratoy: Short of Breath Cardiovascular: No Symptoms Reported Gastrointestinal/Abdominal: Abdominal Pain and Diarrhea Genitourinary: No Symptoms Reported Neurological: Weakness Musculoskeletal: Muscle Pain, Left, Ankle and Foot Integumentary: Wound (LEFT FOOT CELLULITIS) Hematologic/Lymphatic: Easy Bleeding and Easy Bruising Endocrine: No Symptoms Reported Psychiatric: No Symptoms Reported All Other Systems: Reviewed and Negative PE Vital Signs Vitals: Temperature 96.6 F Pulse Rate [Left Brachial] 57 Pulse Rate 78 Respiratory Rate 18 Blood Pressure [Right Arm] 134/59 Blood Pressure [Left Arm] 123/74 Blood Pressure 207/84 O2 Sat by Pulse Oximetry 97 General Limitations: No Limitations General Appearance: Alert and In No Apparent Distress Head Head Exam: Normal Inspection Eyes Eye exam: Normal Appearance ENT ENT Exam: Normal Exam Neck Neck Exam: Normal Inspection and Trachea Midline Chest Chest Inspection: Normal Inspection and Symmetric Chest Wall Rise Respiratory Respiratory Exam: Normal Lung Sounds Bilat Respiratory Exam: Bilateral: Rhonchi and Lower: Rhonchi Cardiovascular Cardiovascular Exam: Regular Rate, Normal Rhythm and Normal Heart Sounds Abdominal Exam Abdominal Exam: Normal Bowel Sounds, Soft and Tenderness Abdominal Tenderness: Diffuse and Moderate Extremities Extremities Exam: Normal Inspection, Tenderness (LEFT FOOT ) and Edema Skin Skin Exam: Erythema (LEFT FOOT CELLULITIS.) MDM Differential Diagnosis Differential Diagnosis: Other (CELLULITIS LT FOOT, CHF, DIARRHEA, ABDOMINAL PAIN , BOWEL OBST.) COURSE Treatment Treatment: SEE ULCERS. ROR Labs Reviewed Laboratory Results Reviewed?: Yes Result Diagrams: 02/23/18 05:05 02/23/18 08:25 Laboratory: WBC 7.2 X10^3/uL (3.6-10.0) 02/23/18 05:05 RBC 4.32 X10^6/uL (3.5-5.4) 02/23/18 05:05 Hgb 13.0 g/dL (12.0-16.0) 02/23/18 05:05 Hct 38.3 % (36.0-47.0) 02/23/18 05:05 MCV 88.7 fL (80.0-100.0) 02/23/18 05:05 MCH 30.1 pg (27.0-34.0) 02/23/18 05:05 MCHC 33.9 g/dL (33.0-35.0) 02/23/18 05:05 RDW 15.3 % (11.6-16.5) 02/23/18 05:05 Plt Count 198 X10^3/uL (150.0-450.0) 02/23/18 05:05 MPV 8.2 fL (7.4-11.0) 02/23/18 05:05 Neut % (Auto) 56.6 % (42.0-75.0) 02/23/18 05:05 Lymph % (Auto) 29.5 % (21.0-51.0) 02/23/18 05:05 Todd % (Auto) 8.8 % (0.0-13.0) 02/23/18 05:05 Eos % (Auto) 4.3 % (0.9-2.9) H 02/23/18 05:05 Baso % (Auto) 0.8 % (0.2-1.0) 02/23/18 05:05 Neut # (Auto) 4.1 x10^3/uL (2.2-4.8) 02/23/18 05:05 Lymph # (Auto) 2.1 X10^3/uL (1.3-2.9) 02/23/18 05:05 Todd # (Auto) 0.6 x10^3/uL (0.3-0.8) 02/23/18 05:05 Eos # (Auto) 0.3 x10^3/uL (0.0-0.2) H 02/23/18 05:05 Baso # (Auto) 0.1 X10^3/uL (0.0-0.1) 02/23/18 05:05 Absolute Nucleated RBC 0.0 /100WBC 02/23/18 05:05 Sodium 139 mmol/L (136-145) 02/23/18 05:05 Corrected Sodium TNP 02/23/18 05:05 Potassium 3.8 mmol/L (3.5-5.1) 02/23/18 08:25 Chloride 101 mmol/L (98-107) 02/23/18 05:05 Carbon Dioxide 32.1 mmol/L (21-32) H 02/23/18 05:05 BUN 5 mg/dL (7-18) L 02/23/18 05:05 Creatinine 0.81 mg/dL (0.55-1.02) 02/23/18 05:05 Est GFR (MDRD) Af Amer > 60 (>60) 02/23/18 05:05 Est GFR (MDRD) Non-Af > 60 (>60) 02/23/18 05:05 Glucose 93 mg/dL (65-99) 02/23/18 05:05 Calcium 9.5 mg/dL (8.5-10.1) 02/23/18 05:05 Corrected Calcium 10.4 mg/dL (8.5-10.1) H 02/23/18 05:05 Magnesium 1.9 mg/dL (1.7-2.9) 02/23/18 05:12 Total Bilirubin 0.50 mg/dL (0.2-1.0) 02/23/18 05:05 AST 38 Units/L (15-37) H 02/23/18 05:05 ALT 40 Units/L (12-78) 02/23/18 05:05 Alkaline Phosphatase 82 Units/L (46-116) 02/23/18 05:05 Total Protein 6.5 g/dL (6.4-8.2) 02/23/18 05:05 Albumin 2.9 g/dL (3.4-5.0) L 02/23/18 05:05 Globulin 3.6 g/dL (2.5-4.5) 02/23/18 05:05 Albumin/Globulin Ratio 0.8 Ratio (1.1-2.1) L 02/23/18 05:05 Amylase 27 Units/L (25-115) 02/21/18 04:43 Lipase 137 Units/L (73-393) 02/21/18 04:43 Specimen Type Catherized urine 02/20/18 20:50 Urine Color Pale yellow (YELLOW) 02/20/18 20:50 Urine Appearance Clear (CLEAR) 02/20/18 20:50 Urine pH 6.0 (5.0 - 8.0) 02/20/18 20:50 Ur Specific [place] 1.010 (1.000-1.030) 02/20/18 20:50 Urine Protein Negative (NEGATIVE) 02/20/18 20:50 Urine Glucose (UA) Negative (NEGATIVE) 02/20/18 20:50 Urine Ketones Negative (NEGATIVE) 02/20/18 20:50 Urine Occult Blood 1+ (NEGATIVE) 02/20/18 20:50 Urine Nitrite Negative (NEGATIVE) 02/20/18 20:50 Urine Bilirubin Negative (NEGATIVE) 02/20/18 20:50 Urine Urobilinogen Normal (NORMAL) 02/20/18 20:50 Ur Leukocyte Esterase Negative (NEGATIVE) 02/20/18 20:50 Urine RBC 0-2 /HPF (NONE SEEN) 02/20/18 20:50 Urine WBC None seen /HPF (NONE SEEN) 02/20/18 20:50 Ur Squamous Epith Cells Negative /HPF (NEGATIVE) 02/20/18 20:50 Urine Bacteria Negative /HPF (NEGATIVE) 02/20/18 20:50 Ur Culture Indicated? No/not indicated 02/20/18 20:50 Stool Description 75g,unformed,perez 02/21/18 08:39 Stl C. diff Tox B Gene Negative (NEGATIVE) 02/21/18 08:39 Stl C. diff [id number] Negative (NEGATIVE) 02/21/18 08:39 Cryptosporid parvum Ag Negative (NEGATIVE) 02/21/18 08:39 Giardia lamblia Ag Negative (NEGATIVE) 02/21/18 08:39 Instructions Instructions: Fall Prevention in the Home, [id number] Gout, [id number] Food Choices to Help Relieve Diarrhea, Adult Abdominal Pain, Adult, [id number] Hypertension, [id number] Heart Failure, Ryoz-zl-Baha Diarrhea, Adult, [id number] Forms: Patient Portal
--- NOTE | 2018-03-21 12:07 | DR.CARTERD ---
- Discharge Summary for: Discharge Summary for Date of:: 02/23/18 - Admission Date Date of Admission: 02/20/18 - Admission Diagnoses Admission Diagnosis: (1) Abdominal pain (2) Acute diarrhea (3) Gout (4) Coronary arteriosclerosis (5) Hyperlipidemia (6) CHF (congestive heart failure) (7) Hypothyroidism - Discharge Date Discharge Date: 02/23/18 - Discharge Diagnoses Discharge Diagnosis: (1) Abdominal pain (2) Acute diarrhea (3) Gout (4) Coronary arteriosclerosis (5) Hyperlipidemia (6) CHF (congestive heart failure) (7) Hypothyroidism - Hospital Course Hospital Course: Day one, Ms. Mckeon presented to the emergency room with reports of diarrhea. Patient reported she was admitted to the hospital last Friday for severe gout to her left foot and discharged home on Friday with instructions to stay off her feet. Patient reported she had been unable to stay off her feet due to severe diarrhea. An abdomen and pelvis CT was obtained on arrival which revealed distention of the gallbladder lumen with wall thickening and pericholecystic fluid the findings suggest developing cholecystitis, cardiomegaly and mild constipation. Medical History: CAD, CHF, Hypertension, Diarrhea, UTIs, Arthrits, Gout. Abnormal Labs: Potassium 3.4, Carbon Dioxide 34.2, AST 76, A/G Ratio 0.9. Urinalysis: Catherized, Occult Blood 1+, RBC 0-2. Foot X-Ray: Degenerative change, osteophyte anemia and hammertoe deformity at the 2nd through 4th toes. Hammertoe deformity obscures evaluation of the phalanges of the 2nd through 4th toes. Correlate clinically for signs of infection or focal tenderness to exclude subtle fracture Patient admitted to the hospital for further evaluation and treatment. Day two, patient continued with diarrhea and abdominal pain. She reported slight improvement in diarrhea. Stool studies collected and were negative. Gentle hydration was continued along with Potassium Protocol for a potassium level of 3.4. On day three, patient was noted with right upper quadrant and epigastric tenderness. She continued with diarrhea; although, was improving. Bowel sounds positive in all quadrants. AST slightly elevated at 662, potassium 3.4, white count normal. Treatment was continued. On day four, patient reported she felt better. Patient was alert and oriented and denied abdominal pain. On examination, no abdominal tenderness noted to palpation. Patient reported diarrhea had ceased. Bowel sounds positive in all quadrants. Vital signs stable. Labs wnl. We planned for discharge. Instructions for medications and follow up were discussed with patient and family, both voiced understanding. Patient discharged home in stable condition with family. - Discharge Medications Discharge Medications: Home Medication List diphenoxylate-atropine [Lomotil] 1 tab PO QID PRN #20 tab 02/23/18 [Rx] Prescriptions: diphenoxylate-atropine [Lomotil] Immanuel Cast Home medications Levothyroxine Sodium [Synthroid] 75 mcg PO DAILY 07/30/12 famotidine 20 mg PO BID 07/30/12 Cyanocobalamin (Vitamin B-12) [Vitamin B-12] 1,000 mcg PO DAILY 10/13/17 furosemide 40 mg PO BID 10/13/17 metoprolol tartrate 50 mg PO BID 10/13/17 simvastatin [Zocor] 20 mg PO HS 10/13/17 colchicine [Colcrys] 0.6 mg PO BID #60 tab 10/18/17 gabapentin 300 mg PO HS 02/16/18 - Discharge Disposition Discharge Disposition: Patient is to follow up in our office in one week.
== END 2018-02-23 14:05 | disposition home or self-care (01) ==
LOC: MED/SURG 16:18 → ER 16:18 → MED/SURG 23:55
PROVIDERS: ADMIT Internal Medicine; ATTEND Internal Medicine
DX: R10.84 Generalized abdominal pain; M20.42 Other hammer toe(s) (acquired), left foot; K59.09 Other constipation; R60.0 Localized edema; I11.0 Hypertensive heart disease with heart failure; M79.672 Pain in left foot; F03.90 Unspecified dementia, unspecified severity, without behavioral disturbance, psychotic disturbance, mood disturbance, and anxiety; E78.2 Mixed hyperlipidemia; M10.9 Gout, unspecified; R19.7 Diarrhea, unspecified; K21.9 Gastro-esophageal reflux disease without esophagitis; E03.8 Other specified hypothyroidism; R26.89 Other abnormalities of gait and mobility; I50.9 Heart failure, unspecified; I25.10 Atherosclerotic heart disease of native coronary artery without angina pectoris
CPT/HCPCS: 36415; 73630; 74176; 76705; 80053; 81001; 82150; 83690; 83735; 84132; 85025; 87328; 87329; 87493; 93005; 96365; 96367; 96374; 96375; 97163; 99218; 99283; 99284; A4222; S0028; G0378; J0696; J2270; J2405; J3475; J7030; J7050; J8499